=== PATIENT | male | born 1960 | race Caucasian/White ===

== ENCOUNTER 2017-11-25 10:19 | Observation (INO) | payer BC, SELFPAY | END 2017-11-26 11:05 | disposition home or self-care (01) | PROVIDERS: Admitting Provider Internal Medicine Adolescent Medicine; Family Provider Nurse Practitioner Family; PCP Nurse Practitioner Family; Visit Provider Internal Medicine Adolescent Medicine | DX: J18.9 Pneumonia, unspecified organism (principal); I10 Essential (primary) hypertension; E11.9 Type 2 diabetes mellitus without complications | CPT/HCPCS: 36415; 71020; 80048; 80053; 82962; 85025; 86738; 87040; 87486; 87581; 87633; 87798; 94640; 94760; G0378; J1956 ==

== ENCOUNTER 2019-09-18 05:08 | Observation (INO) ==
--- NOTE | 2019-09-18 05:12 | Emergency Department Note ---
ED Disposition Clinical Impression: Atypical chest pain, Polycythemia Coronary artery disease Qualifiers: Coronary Disease-Associated Artery/Lesion type: unspecified vessel or lesion type [place] vs. transplanted heart: [place] heart Associated angina: angina presence unspecified Qualified Code(s): I25.10 - Atherosclerotic heart disease of [place] coronary artery without angina pectoris Disposition: Admitted as Observation Condition on Discharge: Good - Critical Care Critical Care Time: No Attestation: On , the high probability of a clinically significant, sudden or life threatening deterioration of the following system(s) required my full and direct attention, intervention and personal management. The time I documented below is in addition to time spent performing reported procedures but includes the following listed in this critical care notation. Medical Decision Making - Olaf Inquiry Pt receiving controlled substance: No Vital Signs: 09/18/19 05:08 09/18/19 05:45 09/18/19 06:13 Temperature 98.5 F Temperature Source Oral Pulse Rate Pulse Rate [Right Brachial] 94 H 91 H 79 Respiratory Rate 19 16 16 Blood Pressure [Right Arm] 148/85 H 129/88 144/41 H Blood Pressure Mean [Right Arm] 106 101 75 Blood Pressure Source [Right Arm] Automatic Cuff Blood Pressure Position [Right Arm] Sitting 02 Sat by Pulse Oximetry 100 96 97 Oxygen Delivery Method Room Air Room Air Room Air 09/18/19 06:15 Temperature Temperature Source Pulse Rate 79 Pulse Rate [Right Brachial] Respiratory Rate Blood Pressure [Right Arm] Blood Pressure Mean [Right Arm] Blood Pressure Source [Right Arm] Blood Pressure Position [Right Arm] 02 Sat by Pulse Oximetry Oxygen Delivery Method - Lab Data Lab Results 09/18/19 05:10: WBC 9.8, RBC 6.20, Hgb 18.4 H*, Hct 58.8 H, MCV 94.9 H, MCH 29.5, MCHC 31.1 L, RDW 13.6, Plt Count 316, MPV 8.2, Neut % (Auto) 53.1, Lymph % (Auto) 37.9, [place] % (Auto) 5.9, Eos % (Auto) 2.2, Baso % (Auto) 0.9, Neut # (Auto) 5.2, Lymph # (Auto) 3.7, [place] # (Auto) 0.6, Eos # (Auto) 0.2, Baso # (Auto) 0.1 09/18/19 05:10: Sodium 138, Potassium 3.8, Chloride 99, Carbon Dioxide 29, Anion Gap 13.8, BUN 14, Creatinine 1.09, Estimated Creat Clear 97, Estimated GFR 69, Est GFR ( Amer) 83, Glucose 355 H, Calcium 9.9, Troponin I < 0.02 Result diagrams: 09/18/19 05:10 09/18/19 05:10 Orders (Tests/Meds): ED MEDICATIONS Generic Name Dose Route Start Last Admin Trade Name Freq PRN Reason Stop Dose Admin Insulin Human Lispro 0 unit 09/18/19 11:00 Humalog 100 Units/Ml 3ml Vial (Ssi) SQ 10/18/19 10:59 ACHS RICKY Protocol Discontinued Medications Generic Name Dose Route Start Last Admin Trade Name Freq PRN Reason Stop Dose Admin Aspirin 324 mg 09/18/19 06:35 09/18/19 06:05 Aspirin 81mg Chewable Tablet PO 09/18/19 06:36 324 mg ONCE ONE Administration - Radiology Data #1 Image(s): Chest Image Reviewed: Yes I reviewed the patient's radiology image Preliminary Findings: Normal/NAD - ECG Data Tracing #1 EKG interpreted by David Thomas MD: Rhythm: sinus Rate: 93 [place]: normal Ectopy: Premature atrial contraction Conduction: normal ST Segment Changes: none T Wave Changes: none Q Waves: none No evidence of acute ischemia or injury Baseline artifact present, but I consider the EKG adequate for accurate interpretation. - Physician Consults Physician Consulted: Peng Time: 06:23 Reason -: Admission Comment/Response: Agrees to admit the patient to the hospital. We discussed the patient's clinical information, including history, exam, laboratory and radiology results and ED course. Per hospital procedure, I will write temporary bridge inpatient orders on the patient. Specific orders requested by the admitting physician: Admit to observation with cardiology consult Medical Decision Narrative: Patient was seen here October 2016 for chest pain and admitted. He had a cardiac cath which showed an occluded right coronary artery with collaterals. Medical management. Normal troponins on that visit. General Adult HPI - General Chief complaint: Chest Pain Stated complaint: chest Time Seen by Provider: 09/18/19 05:23 - History of Present Illness HPI narrative: Complains of chest pain. Says that last Monday and Monday about 10 days ago he experienced several very sharp brief stabbing type chest pains in his left axillary area. He says that on Monday 1 week ago he started developing some soreness in his left anterior chest. It has been constant since then. It worsens when he grabs his pillow at night. He says sometimes he gets a little short of breath at night. No nausea or diaphoresis. No radiation of pain. States that he has had a previous LA, current pain reminds him of that pain. He has had a cardiac cath. He says that he had a blocked right sided artery with collaterals. He says that they told him he had had a previous heart attack based on his work-up, although he had no knowledge of a heart attack prior to that. He does not know that he got any stents. He says that he had a work-up here by Dr. Duarte. He has hypertension, diabetes, hyperlipidemia and a strong family history of heart disease. Father had a heart attack and brother had a heart attack at the age of 51. He is not a smoker. - Related Data Home Medications Medication Instructions Recorded Confirmed Aspirin [Aspirin 81mg chewable 81 mg PO DAILY 09/18/19 09/18/19 tab] Atorvastatin Calcium [Atorvastatin 80 mg PO HS 09/18/19 09/18/19 80mg Tab] Dapagliflozin Propanediol [Farxiga] 10 mg PO DAILY 09/18/19 09/18/19 Glimepiride 4 mg PO DAILY 09/18/19 09/18/19 Irbesartan [Irbesartan 75mg Tablet] 75 mg PO DAILY 09/18/19 09/18/19 Metformin HCl [Metformin 1000mg 1,000 mg PO DAILY 09/18/19 09/18/19 Tablets] Metoprolol Tartrate [Lopressor 25 mg PO BID 09/18/19 09/18/19 25mg tablet] Allergies Allergy/AdvReac Type Severity Reaction Status Date / Time No Known Allergies Allergy Unverified 11/14/17 15:15 [facility] History - Hepatitis A Screen Attestation statement:: This patient has been screened for Hepatitis A risk factors. I have reviewed the patient's past medical history: Yes ROS Obtained: Yes Systems reviewed as appropriate & no additional complaints - Constitutional Constitutional: Denies fever(s) - Cardiovascular Cardiovascular: Reports chest pain, Denies diaphoresis - Respiratory Respiratory: No cough, Yes dyspnea - Gastrointestinal Gastrointestingal: Denies: abdominal pain, nausea, vomiting Physical Exam - General General appearance: alert, in no apparent distress - Head Head exam: atraumatic, normocephalic - Eye Eye exam: Present: normal appearance, EOMI - ENT ENT exam: Present: normal exam, mucous membranes moist - Neck Neck exam: Present: normal inspection, trachea midline - Chest Chest inspection: Present: normal inspection, symmetric chest wall rise, tenderness (Minimal left anterior chest). Absent: rash - Respiratory Respiratory exam: Present: normal lung sounds bilaterally. Absent: respiratory distress - Cardiovascular Cardiovascular exam: Present: regular rate, normal rhythm - Abdominal Exam Abdominal exam: Present: soft, normal bowel sounds. Absent: distention, tenderness - Extremities Exam Extremities exam: Present: normal inspection, full ROM. Absent: tenderness, calf tenderness - Neurological Exam Neurological exam: Present: alert, oriented X3 - Psychiatric Psychiatric exam: Present: normal affect, normal mood - Skin Skin exam: Present: warm, dry
[2019-09-18 05:55] LABS: Basophils # 0.1 K/mm3 (0-0.2); Basophils % 0.9 % (0.1-2.0); Eosinophils # 0.2 K/mm3 (0.0-0.4); Eosinophils % 2.2 % (0.1-12.0); Hematocrit 58.8 % (42.0-52.0); Lymphocytes # 3.7 K/mm3 (0.7-4.5); Lymphocytes % 37.9 % (10-50); Mean Corpuscular HGB Conc 31.1 g/dL (31.8-35.4); Mean Corpuscular Volume 94.9 fl (80-94); Mean Platelet Volume 8.2 fl (7.4-10.4); Monocytes # 0.6 K/mm3 (0.1-1.0); Monocytes % 5.9 % (1.7-9.3); Neutrophils # 5.2 K/mm3 (1.8-7.8); Neutrophils % 53.1 % (37.0-80.0); Platelet Count 316 K/mm3 (142-424); Red Cell Distribution Width 13.6 % (11.5-17.5); White Blood Count 9.8 K/mm3 (4.8-10.8)
[2019-09-18 06:03] LABS: Hemoglobin 18.4 g/dL (14.1-18.0)
[2019-09-18 06:05] LABS: Anion Gap 13.8 mEq/L (5-15); Blood Urea Nitrogen 14 mg/dL (7-18); Calcium 9.9 mg/dL (8.5-10.1); Carbon Dioxide 29 mmol/L (21.0-32.0); Chloride 99 mmol/L (98-107); Glucose 355 mg/dL (74-106); Sodium 138 mmol/L (136-145)
--- NOTE | 2019-09-18 07:11 | Pharmacy Consult Notes ---
[facility] Pharmacy VTE Monitoring - Patient Demographics Admission date: 09/17/19 Report Date: 09/18/19 Time: 07:11 Allergies/Adverse Reactions: Patient Allergies No Known Allergies Allergy (Unverified 11/14/17 15:15) Height: 1.68 m Weight: 95.254 kg Patient Problems: Current Active Problems Atypical chest pain (Acute) Coronary artery disease (Acute) Polycythemia (Acute) - VTE Risk Labs: VTE Related Lab Results Hgb 18.4 g/dL (14.1-18.0) H* 09/18/19 05:10 Hct 58.8 % (42.0-52.0) H 09/18/19 05:10 Plt Count 316 K/mm3 (142-424) 09/18/19 05:10 BUN 14 mg/dL (7-18) 09/18/19 05:10 Creatinine 1.09 mg/dL (0.70-1.30) 09/18/19 05:10 Estimated Creat Clear 97 mL/min (50-200) 09/18/19 05:10 Clinical Trial Participant: No - Prophylaxis VTE Prophylaxis Ordered?: Yes Types of VTE Prophylaxis: TEDS Knee High
--- NOTE | 2019-09-18 09:17 | Consult Report ---
History of Present Illness Consult date: 09/18/19 Requesting physician: David Thomas Consult reason: chest pain Chief complaint: Chest pain Additional Medical History:: 1. Coronary artery disease with occluded right coronary artery 2. Myocardial infarction 3. Hypertension 4. Hyperlipidemia 5. Diabetes mellitus [facility] Oct 2016: 1. The left main artery mild plaque disease less than 10% stenosis 2. The left anterior descending artery mild plaque disease less than 20% 3. Left circumflex mild plaque disease less than 20% 4. Ramus intermediate proximal 30-40%, diffusely diseased 5. Right coronary artery 100% proximally occluded with well-developed left to right collaterals 6. Left ventricular end-diastolic pressure 10 mmHg 7. No significant angiographic mitral regurgitation 8. No gradient across the aortic valve 9. LVEF 50% with mild inferobasal hypokinesis IMPRESSION: 1. Coronary artery disease as described above with preserved left ventricular systolic function PLAN: 1. Medical management with aggressiveness modification 2. Metoprolol 25 mg by mouth twice daily 3. [id number] mg by mouth daily 4. Ranexa 500 mg twice daily 5. aggressive lipid lowering therapy History of present illness: This is a 59-year-old gentleman who came into the emergency department with complaints of chest pain. He states that his pain started about 10 days ago and initially started in his left axillary region. He states that this was a sharp pain felt as if it was a stabbing sensation. The patient states that the following Monday the pain started to radiate into his chest. He describes this as a left-sided aching sensation. He states that this is fairly constant when it occurs. He states that it does improve but then comes right back. He states that this is worse when he is grabbing something or picking something up. He does notice this at rest and at times with exertion as well. The patient states that over the last 10 days this pain has progressively worsened. He states that it did get worse overnight last night and that is why he decided to come into the emergency department. He does have some intermittent shortness of breath as well. He denies any nausea, vomiting or diaphoresis. The patient states that the pain he is experiencing now is worse than the pain that he had previously when he was told that he had an GA in the past. The patient is describing accelerated angina. The patient does have coronary artery disease with an occluded right coronary artery that has left to right collaterals. He also had persistent mild to moderate diffuse coronary artery disease as well. This was in 2016. The patient has failed to follow-up regularly in cardiology clinic. He does have known coronary artery disease, hypertension, hyperlipidemia and diabetes. Both his father and brother had a heart attack. He denies any tobacco use. He denies any fever, chills, nausea, vomiting, diarrhea, PND or orthopnea. [facility] History I have reviewed the patient's past medical history: Yes Medical History: Reports:: Atherosclerotic Heart Disease, Coronary Artery Disease, Diabetes Mellitus Type 2, Hyperlipidemia, Hypertension Denies:: Cancer, Diabetes Mellitus Type 1, Internal Pacemaker, MRSA *Have you ever received a pneumonia vaccine?: No *Have you received a flu vaccine this season?: No (Refuses) Laterality Cases: Bilateral: Tonsillectomy Other Surgeries: Yes: Cardiac Catheterization. No: Pacemaker Amputation: No Fractures: No - *Social History Educational Level: Completed High School Smoking Status: Never smoker Alcohol Intake: former *Occupational Status:: employed Housing: house *Travel in the last 8 weeks: None Family Hx:: Diabetes, Heart Attack, Hypertension Meds Home Medications Medication Instructions Recorded Confirmed Type Aspirin [Aspirin 81mg EC Tab] 81 mg PO DAILY 09/18/19 09/18/19 History Atorvastatin Calcium [Atorvastatin 80 mg PO HS 09/18/19 09/18/19 History 80mg Tab] Dapagliflozin Propanediol [Farxiga] 10 mg PO DAILY 09/18/19 09/18/19 History Glimepiride 4 mg PO DAILY 09/18/19 09/18/19 History Losartan Potassium 50 mg PO DAILY 09/18/19 09/18/19 History Metformin HCl [Metformin 1000mg 1,000 mg PO BID 09/18/19 09/18/19 History Tablets] Metoprolol Tartrate [Lopressor 25 mg PO BID 09/18/19 09/18/19 History 25mg tablet] Niacin [Niacin ER] 500 mg PO HS 09/18/19 09/18/19 History Allergies Allergy/AdvReac Type Severity Reaction Status Date / Time No Known Allergies Allergy Unverified 11/14/17 15:15 Review of Systems - Review of Systems Review of systems:: pertinent systems reviewed and negative unless documented below - *Cardiovascular Reports chest pain, Reports chest pain at rest, Reports chest pain with activity, Reports shortness of breath - *Respiratory Reports shortness of breath Exam Vital signs and Labs for Last 24 Hours: Temp Pulse Resp BP Pulse Ox 98.6 F 83 18 131/80 97 09/18/19 08:08 09/18/19 08:08 09/18/19 08:08 09/18/19 08:08 09/18/19 08:08 Laboratory Results - last 24 hr 09/18/19 05:10: WBC 9.8, RBC 6.20, Hgb 18.4 H*, Hct 58.8 H, MCV 94.9 H, MCH 29.5, MCHC 31.1 L, RDW 13.6, Plt Count 316, MPV 8.2, Neut % (Auto) 53.1, Lymph % (Auto) 37.9, [place] % (Auto) 5.9, Eos % (Auto) 2.2, Baso % (Auto) 0.9, Neut # (Auto) 5.2, Lymph # (Auto) 3.7, [place] # (Auto) 0.6, Eos # (Auto) 0.2, Baso # (Auto) 0.1 09/18/19 05:10: Sodium 138, Potassium 3.8, Chloride 99, Carbon Dioxide 29, Anion Gap 13.8, BUN 14, Creatinine 1.09, Estimated Creat Clear 97, Estimated GFR 69, Est GFR ( Amer) 83, Glucose 355 H, Calcium 9.9, Troponin I < 0.02 09/18/19 05:10: Troponin I < 0.02 I & O for Last 24 hours: Intake & Output 09/15/19 09/16/19 09/17/19 09/18/19 23:59 23:59 23:59 23:59 Weight 183 lb 3 oz Narrative: His EKG is sinus rhythm with a PAC and a rate of 93. His telemetry strip is sinus rhythm with a rate of 92. - Constitutional no acute distress, average body habitus - *Routine HEENT Exam Head: Present: normocephalic, atraumatic Eye: Present: EOMI, PERRL ENT: Present: mucous membranes moist - *Routine Neck Exam Present: supple, full ROM, normal carotid upstroke. Absent: JVD, carotid bruit, lymphadenopathy - *Routine Respiratory Exam Present: CTA bilaterally - *Routine Cardiovascular Exam Present: RRR, Normal S1, Normal S2. Absent: murmur, gallop - *Routine Abdominal Exam Present: soft, normoactive bowel sounds. Absent: tenderness, distended - *Routine Extremities Exam Present: full ROM, pulses intact, normal capillary refill. Absent: cyanosis, clubbing, edema - *Routine Skin Exam Present: intact, warm. Absent: erythema, rash - *Routine Neurological Exam Present: alert, oriented X3, CN II-XII intact. Absent: sensory deficit, motor deficit - Routine Psychiatric Exam Present: normal affect, normal thought process - Detailed Eye Exam Eyelids: Left normal inspection Assessment and Plan (1) Angina pectoris Current visit: Yes Status: Acute Category: Medical Code(s): I20.9 - Angina pectoris, unspecified (2) Shortness of breath Current visit: Yes Status: Acute Category: Medical Code(s): R06.02 - Shortness of breath (3) Coronary artery disease Current visit: Yes Status: Chronic Qualifiers: Coronary Disease-Associated Artery/Lesion type: unspecified vessel or lesion type [place] vs. transplanted heart: [place] heart Associated angina: angina presence unspecified Qualified Code(s): I25.10 - Atherosclerotic heart disease of [place] coronary artery without angina pectoris Category: Medical Code(s): I25.10 - Atherosclerotic heart disease of [place] coronary artery without angina pectoris (4) Hypertension Current visit: Yes Status: Chronic Category: Medical Code(s): I10 - Essential (primary) hypertension (5) Hyperlipidemia Current visit: Yes Status: Chronic Category: Medical Code(s): E78.5 - Hyperlipidemia, unspecified (6) Diabetes mellitus Current visit: Yes Status: Chronic Category: Medical Code(s): E11.9 - Type 2 diabetes mellitus without complications (7) Family history of ischemic heart disease Current visit: Yes Status: Chronic Category: Medical Code(s): Z82.49 - Family history of ischemic heart disease and other diseases of the circulatory system (8) Polycythemia Current visit: Yes Status: Acute Category: Medical Code(s): D75.1 - Secondary polycythemia - Assessment and plan all Dx Assessment and Plan for all problems:: Plan: 1. The patient was admitted to the hospital with complaints of chest pain. The patient has been having class III-IV angina for the last 10 days. He states that his symptoms are progressively worsening and did get worse overnight and that is why he came into the emergency department. The patient is having accelerated angina he has known coronary artery disease with an occluded right coronary artery with [id number] collaterals. He also had diffuse persistent mild to moderate disease in 2016 which was the last time the patient had an ischemic evaluation. Stress testing would not be helpful in this patient brenda use of the occluded right coronary artery, and ischemia could be missed. Due to his class III-IV angina and accelerated angina, recommend proceeding with left cardiac catheterization to evaluate his coronary artery disease. 2. The patient has been educated on the risks and benefits of proceeding with left cardiac catheterization with right radial access. The patient has verbalized understanding and is agreeable in proceeding with the procedure. 3. The patient will be n.p.o. in preparation for left cardiac catheterization. 4. The patient will get IV fluids and premedications prior to left cardiac catheterization. 5. We will obtain an echocardiogram to evaluate his LV function due to his shortness of breath and accelerated angina. 6. The patient is heart rate is higher than we would like. We will increase his metoprolol to 50 mg p.o. twice daily for better heart rate control. 7. His blood pressure is acceptable at this time. 8. His LDL goal is less than 55. The patient is on a high intensity statin. Will obtain a lipid panel at this time. 9. The patient is diabetic placing him at high risk for coronary artery disease progression. The patient reports that he drinks 15-18 Mountain Dew's a day. I had a long discussion with the patient about the sugar content and soda and how he needs to avoid drinking a significant amount of soda in a day or his diabetes could significantly worsen which can in turn worsen his coronary artery disease. 10. The patient does have a family history of GA with his father and brother both having heart attacks. His brother was 51 at the time of his heart attack. 11. Further recommendations will be made pending the patient's response to treatment and the results of his left cardiac catheterization and echocardiogram later today. Thank you for the opportunity to help participate in the care of this patient.
[2019-09-18 10:42] LABS: Chol/HDL Ratio 2.8 (1-3.5)
--- NOTE | 2019-09-18 11:15 | Electrocardiograph Report ---
APPROVED REPORT Exam: Resting ECG HR:93 bpm ECG Measurements Heart Rate 93 AXES [place] 146 P 53 QRSd 74 QRS 9 QT 372 T54 QTc 462 <Conclusion> Sinus rhythm with premature supraventricular complexes Otherwise normal ECG Electronically signed by : Abel Khoury, 09/18/2019 11:15:18
--- NOTE | 2019-09-18 13:24 | History & Physical Report ---
*Admission Date: 09/17/19 *Chief complaint: Chest pain/dyspnea *History of present illness: This is a 59-year-old gentleman who came into the emergency department with complaints of chest pain. He states that his pain started about 10 days ago and initially started in his left axillary region. He states that this was a sharp pain felt as if it was a stabbing sensation. The patient states that the following Monday the pain started to radiate into his chest. He describes this as a left-sided aching sensation. He states that this is fairly constant when it occurs. He states that it does improve but then comes right back. He states that this is worse when he is grabbing something or picking something up. He does notice this at rest and at times with exertion as well. The patient states that over the last 10 days this pain has progressively worsened. He states that it did get worse overnight last night and that is why he decided to come into the emergency department. He does have some intermittent shortness of breath as well. He denies any nausea, vomiting or diaphoresis. The patient states that the pain he is experiencing now is worse than the pain that he had previously when he was told that he had an MO in the past. The patient is describing accelerated angina. The patient does have coronary artery disease with an occluded right coronary artery that has left to right collaterals. He also had persistent mild to moderate diffuse coronary artery disease as well. This was in 2016. The patient has failed to follow-up regularly in cardiology clinic. He does have known coronary artery disease, hypertension, hyperlipidemia and diabetes. Both his father and brother had a heart attack. He denies any tobacco use. He denies any fever, chills, nausea, vomiting, diarrhea, PND or orthopnea. Above note per cardiology. Agree with above. Agree with admission to hospital. [facility] History I have reviewed the patient's past medical history: Yes Medical History: Reports:: Atherosclerotic Heart Disease, Coronary Artery Disease, Diabetes Mellitus Type 2, Hyperlipidemia, Hypertension Denies:: Cancer, Diabetes Mellitus Type 1, Internal Pacemaker, MRSA *Have you ever received a pneumonia vaccine?: No *Have you received a flu vaccine this season?: No (Refuses) Laterality Cases: Bilateral: Tonsillectomy Other Surgeries: Yes: Cardiac Catheterization. No: Pacemaker Amputation: No Fractures: No - *Social History Educational Level: Completed High School Smoking Status: Never smoker Alcohol Intake: former *Occupational Status:: employed Housing: house *Travel in the last 8 weeks: None Family Hx:: Diabetes, Heart Attack, Hypertension Review of Systems - Review of Systems Review of systems:: pertinent systems reviewed and negative unless documented below Meds Home Medications Medication Instructions Recorded Confirmed Type Aspirin [Aspirin 81mg EC Tab] 81 mg PO DAILY 09/18/19 09/18/19 History Atorvastatin Calcium [Atorvastatin 80 mg PO HS 09/18/19 09/18/19 History 80mg Tab] Dapagliflozin Propanediol [Farxiga] 10 mg PO DAILY 09/18/19 09/18/19 History Glimepiride 4 mg PO DAILY 09/18/19 09/18/19 History Irbesartan [Irbesartan 75mg Tablet] 75 mg PO DAILY 09/18/19 09/18/19 History Metformin HCl [Metformin 1000mg 1,000 mg PO BID 09/18/19 09/18/19 History Tablets] Metoprolol Tartrate [Lopressor 25 mg PO BID 09/18/19 09/18/19 History 25mg tablet] Niacin [Niacin ER] 500 mg PO HS 09/18/19 09/18/19 History Allergies Allergy/AdvReac Type Severity Reaction Status Date / Time No Known Allergies Allergy Unverified 11/14/17 15:15 Exam Vital signs and Labs for Last 24 Hours: Temp Pulse Resp BP Pulse Ox 98.6 F 83 18 131/80 97 09/18/19 08:08 09/18/19 08:08 09/18/19 08:08 09/18/19 08:08 09/18/19 08:08 Laboratory Results - last 24 hr 09/18/19 05:10: WBC 9.8, RBC 6.20, Hgb 18.4 H*, Hct 58.8 H, MCV 94.9 H, MCH 29.5, MCHC 31.1 L, RDW 13.6, Plt Count 316, MPV 8.2, Neut % (Auto) 53.1, Lymph % (Auto) 37.9, [place] % (Auto) 5.9, Eos % (Auto) 2.2, Baso % (Auto) 0.9, Neut # (Auto) 5.2, Lymph # (Auto) 3.7, [place] # (Auto) 0.6, Eos # (Auto) 0.2, Baso # (Auto) 0.1 09/18/19 05:10: Sodium 138, Potassium 3.8, Chloride 99, Carbon Dioxide 29, Anion Gap 13.8, BUN 14, Creatinine 1.09, Estimated Creat Clear 97, Estimated GFR 69, Est GFR ( Amer) 83, Glucose 355 H, Calcium 9.9, Troponin I < 0.02 09/18/19 05:10: Troponin I Cancelled 09/18/19 05:10: Triglycerides 270 H, Cholesterol 147, LDL Cholesterol 41, VLDL Cholesterol 54 H, HDL Cholesterol 52, Cholesterol/HDL Ratio 2.8 09/18/19 10:03: Troponin I < 0.02 I & O for Last 24 hours: Intake & Output 09/16/19 09/17/19 09/18/19 09/19/19 11:59 11:59 11:59 11:59 Weight 183 lb 2.984 oz Narrative: Constitutional no acute distress, average body habitus - *Routine HEENT Exam Head: Present: normocephalic, atraumatic Eye: Present: EOMI, PERRL ENT: Present: mucous membranes moist - *Routine Neck Exam Present: supple, full ROM, normal carotid upstroke. Absent: JVD, carotid bruit, lymphadenopathy - *Routine Respiratory Exam Present: CTA bilaterally - *Routine Cardiovascular Exam Present: RRR, Normal S1, Normal S2. Absent: murmur, gallop - *Routine Abdominal Exam Present: soft, normoactive bowel sounds. Absent: tenderness, distended - *Routine Extremities Exam Present: full ROM, pulses intact, normal capillary refill. Absent: cyanosis, clubbing, edema - *Routine Skin Exam Present: intact, warm. Absent: erythema, rash - *Routine Neurological Exam Present: alert, oriented X3, CN II-XII intact. Absent: sensory deficit, motor deficit - Routine Psychiatric Exam Present: normal affect, normal thought process Assessment and Plan (1) Angina pectoris Current visit: Yes Status: Acute Category: Medical Code(s): I20.9 - Angina pectoris, unspecified (2) Shortness of breath Current visit: Yes Status: Acute Category: Medical Code(s): R06.02 - Shortness of breath (3) Coronary artery disease Current visit: Yes Status: Chronic Qualifiers: Coronary Disease-Associated Artery/Lesion type: unspecified vessel or lesion type [place] vs. transplanted heart: [place] heart Associated angina: angina presence unspecified Qualified Code(s): I25.10 - Atherosclerotic heart disease of [place] coronary artery without angina pectoris Category: Medical Code(s): I25.10 - Atherosclerotic heart disease of [place] coronary artery without angina pectoris (4) Hypertension Current visit: Yes Status: Chronic Category: Medical Code(s): I10 - Essential (primary) hypertension (5) Hyperlipidemia Current visit: Yes Status: Chronic Category: Medical Code(s): E78.5 - Hyperlipidemia, unspecified (6) Diabetes mellitus Current visit: Yes Status: Chronic Category: Medical Code(s): E11.9 - Type 2 diabetes mellitus without complications (7) Family history of ischemic heart disease Current visit: Yes Status: Chronic Category: Medical Code(s): Z82.49 - Family history of ischemic heart disease and other diseases of the circulatory system (8) Polycythemia Current visit: Yes Status: Acute Category: Medical Code(s): D75.1 - Secondary polycythemia - Assessment and plan all Dx Assessment and Plan for all problems:: Agree with admission to hospital. Cardiology consultation and probable left heart catheterization. Fingerstick blood sugar with sliding scale insulin for better glycemic control.
--- NOTE | 2019-09-18 23:34 | Discharge Summary ---
General - General Admission date:: 09/18/19 Discharge date: 09/19/19 HPI HPI: This is a 59-year-old gentleman who came into the emergency department with complaints of chest pain. He states that his pain started about 10 days ago and initially started in his left axillary region. He states that this was a sharp pain felt as if it was a stabbing sensation. The patient states that the following Monday the pain started to radiate into his chest. He describes this as a left-sided aching sensation. He states that this is fairly constant when it occurs. He states that it does improve but then comes right back. He states that this is worse when he is grabbing something or picking something up. He does notice this at rest and at times with exertion as well. The patient states that over the last 10 days this pain has progressively worsened. He states that it did get worse overnight last night and that is why he decided to come into the emergency department. He does have some intermittent shortness of breath as well. He denies any nausea, vomiting or diaphoresis. The patient states that the pain he is experiencing now is worse than the pain that he had previously when he was told that he had an NH in the past. The patient is describing accelerated angina. The patient does have coronary artery disease with an occluded right coronary artery that has left to right collaterals. He also had persistent mild to moderate diffuse coronary artery disease as well. This was in 2016. The patient has failed to follow-up regularly in cardiology clinic. He does have known coronary artery disease, hypertension, hyperlipidemia and di abetes. Both his father and brother had a heart attack. He denies any tobacco use. He denies any fever, chills, nausea, vomiting, diarrhea, PND or orthopnea. Above note per cardiology. Agree with above. Agree with admission to hospital. Hospital Course Hospital Course: 59-year-old male admitted for chest pain. Was taken emergently to the [facility] where drug-eluting stents were placed. See cath report for full details. Had improvement in his pain. Was initiated on goal-directed therapy and dual antiplatelet therapy. Patient tolerated meds well and remained symptom-free throughout the duration of his admission. Tolerating p.o. intake with good ability to tolerate meds. Denied chest pain, shortness of breath, weakness, confusion, nausea, vomiting. Medically stable for discharge home with close follow-up with both cardiology and his PCP. Of note, patient noted to have poorly controlled diabetes. Have tried multiple different therapies in the outpatient setting including current oral regimen as well as trying to initiate insulin. Patient continues to have financial hurdles to his insulin therapy however stressed the significance of his uncontrolled diabetes and continued progression of coronary artery disease as well as neuropathy and other complications of diabetes. Patient states understanding. Will address diabetes in the outpatient setting. Objective Vital signs: Temp Pulse Resp BP Pulse Ox 98.9 F 65 14 95/61 L 97 09/18/19 20:07 09/18/19 22:00 09/18/19 22:00 09/18/19 22:00 09/18/19 22:00 Narrative: Constitutional no acute distress, average body habitus - *Routine HEENT Exam Head: Present: normocephalic, atraumatic Eye: Present: EOMI, PERRL ENT: Present: mucous membranes moist - *Routine Neck Exam Present: supple, full ROM, normal carotid upstroke. Absent: JVD, carotid bruit, lymphadenopathy - *Routine Respiratory Exam Present: CTA bilaterally - *Routine Cardiovascular Exam Present: RRR, Normal S1, Normal S2. Absent: murmur, gallop - *Routine Abdominal Exam Present: soft, normoactive bowel sounds. Absent: tenderness, distended - *Routine Extremities Exam Present: full ROM, pulses intact, normal capillary refill. Absent: cyanosis, clubbing, edema - *Routine Skin Exam Present: intact, warm. Absent: erythema, rash - *Routine Neurological Exam Present: alert, oriented X3, CN II-XII intact. Absent: sensory deficit, motor deficit - Routine Psychiatric Exam Present: normal affect, normal thought process Results Labs on day of discharge: Labs from last 24 hours 09/18/19 09/18/19 09/18/19 20:14 16:11 12:10 WBC RBC Hgb Hct MCV MCH MCHC RDW Plt Count MPV Neut % (Auto) Lymph % (Auto) [place] % (Auto) Eos % (Auto) Baso % (Auto) Neut # (Auto) Lymph # (Auto) [place] # (Auto) Eos # (Auto) Baso # (Auto) Activated Clotting Time > 400 H* Sodium Potassium Chloride Carbon Dioxide Anion Gap BUN Creatinine Estimated Creat Clear Estimated GFR Est GFR ( Amer) Glucose POC Glucose 243 H 308 H* Calcium Troponin I Triglycerides Cholesterol LDL Cholesterol VLDL Cholesterol HDL Cholesterol Cholesterol/HDL Ratio 09/18/19 09/18/19 09/18/19 10:03 05:10 05:10 WBC RBC Hgb Hct MCV MCH MCHC RDW Plt Count MPV Neut % (Auto) Lymph % (Auto) [place] % (Auto) Eos % (Auto) Baso % (Auto) Neut # (Auto) Lymph # (Auto) [place] # (Auto) Eos # (Auto) Baso # (Auto) Activated Clotting Time Sodium Potassium Chloride Carbon Dioxide Anion Gap BUN Creatinine Estimated Creat Clear Estimated GFR Est GFR ( Amer) Glucose POC Glucose Calcium Troponin I < 0.02 Cancelled Triglycerides 270 H Cholesterol 147 LDL Cholesterol 41 VLDL Cholesterol 54 H HDL Cholesterol 52 Cholesterol/HDL Ratio 2.8 09/18/19 09/18/19 05:10 05:10 WBC 9.8 RBC 6.20 Hgb 18.4 H* Hct 58.8 H MCV 94.9 H MCH 29.5 MCHC 31.1 L RDW 13.6 Plt Count 316 MPV 8.2 Neut % (Auto) 53.1 Lymph % (Auto) 37.9 [place] % (Auto) 5.9 Eos % (Auto) 2.2 Baso % (Auto) 0.9 Neut # (Auto) 5.2 Lymph # (Auto) 3.7 [place] # (Auto) 0.6 Eos # (Auto) 0.2 Baso # (Auto) 0.1 Activated Clotting Time Sodium 138 Potassium 3.8 Chloride 99 Carbon Dioxide 29 Anion Gap 13.8 BUN 14 Creatinine 1.09 Estimated Creat Clear 97 Estimated GFR 69 Est GFR ( Amer) 83 Glucose 355 H POC Glucose Calcium 9.9 Troponin I < 0.02 Triglycerides Cholesterol LDL Cholesterol VLDL Cholesterol HDL Cholesterol Cholesterol/HDL Ratio DS: Diagnosis - Discharge Diagnosis (1) Angina pectoris Status: Resolved (2) Shortness of breath Status: Resolved (3) Coronary artery disease Status: Chronic (4) Hypertension Status: Chronic (5) Hyperlipidemia Status: Chronic (6) Diabetes mellitus Status: Chronic (7) Family history of ischemic heart disease Status: Chronic (8) Polycythemia Status: Acute Discharge Plan - Patient Discharge Instructions Patient Instructions: Cardiac Catheterization, Heart-Healthy Diet, DI for Angina, DI for Cardiac Catheterization, DI for Surgical Site Infection - Follow up Plan Follow up with: Tim Ferrer MD [Staff Physician] - Brenden Duarte MD [Staff Physician] - 09/26/19 9:50 am Disposition: Home, Self-[facility]ci Medications: Home Medications Medication Instructions Recorded Confirmed Type Atorvastatin Calcium [Atorvastatin 80 mg PO HS 09/18/19 09/18/19 History 80mg Tab] Dapagliflozin Propanediol [Farxiga] 10 mg PO DAILY 09/18/19 09/18/19 History Glimepiride 4 mg PO DAILY 09/18/19 09/18/19 History Irbesartan [Irbesartan 75mg Tablet] 75 mg PO DAILY 09/18/19 09/18/19 History Metformin HCl [Metformin 1000mg 1,000 mg PO BID 09/18/19 09/18/19 History Tablets] Niacin [Niacin ER] 500 mg PO HS 09/18/19 09/18/19 History Aspirin [Aspirin 81mg chewable 81 mg PO DAILY 30 Days #30 tab.chew 09/19/19 Rx tab] Isosorbide Mononitrate [Imdur 30mg 30 mg PO DAILY 30 Days #30 tab 09/19/19 Rx ER tablet] Metoprolol Tartrate [Lopressor 50 mg PO BID 30 Days #60 tab 09/19/19 Rx 50mg tablet] Ticagrelor [Brilinta 90mg Tablet] 90 mg PO BID 30 Days #60 tab 09/19/19 Rx Prescriptions/Medication Reconciliation: New Aspirin [Aspirin 81mg chewable tab] 81 mg PO DAILY 30 Days #30 tab.chew Ticagrelor [Brilinta 90mg Tablet] 90 mg PO BID 30 Days #60 tab Metoprolol Tartrate [Lopressor 50mg tablet] 50 mg PO BID 30 Days #60 tab Isosorbide Mononitrate [Imdur 30mg ER tablet] 30 mg PO DAILY 30 Days #30 tab Continued Atorvastatin Calcium [Atorvastatin 80mg Tab] 80 mg PO HS Metformin HCl [Metformin 1000mg Tablets] 1,000 mg PO BID Glimepiride 4 mg PO DAILY Dapagliflozin Propanediol [Farxiga] 10 mg PO DAILY Irbesartan [Irbesartan 75mg Tablet] 75 mg PO DAILY Niacin [Niacin ER] 500 mg PO HS Discontinued Metoprolol Tartrate [Lopressor 25mg tablet] 25 mg PO BID Aspirin [Aspirin 81mg EC Tab] 81 mg PO DAILY - Problem Reconciliation Problems Reviewed?: Yes
[2019-09-19 06:00] LABS: Basophils # 0.1 K/mm3 (0-0.2); Basophils % 0.5 % (0.1-2.0); Eosinophils # 0.2 K/mm3 (0.0-0.4); Eosinophils % 2.1 % (0.1-12.0); Hematocrit 51.1 % (42.0-52.0); Hemoglobin 16.1 g/dL (14.1-18.0); Lymphocytes # 2.9 K/mm3 (0.7-4.5); Lymphocytes % 24.7 % (10-50); Mean Corpuscular HGB Conc 31.5 g/dL (31.8-35.4); Mean Corpuscular Volume 92.7 fl (80-94); Mean Platelet Volume 8.5 fl (7.4-10.4); Monocytes # 0.8 K/mm3 (0.1-1.0); Monocytes % 7.3 % (1.7-9.3); Neutrophils # 7.6 K/mm3 (1.8-7.8); Neutrophils % 65.5 % (37.0-80.0); Platelet Count 253 K/mm3 (142-424); Red Blood Count 5.51 M/mm3 (4.60-6.20); Red Cell Distribution Width 13.6 % (11.5-17.5); White Blood Count 11.6 K/mm3 (4.8-10.8)
[2019-09-19 06:40] LABS: Anion Gap 13.3 mEq/L (5-15)
[2019-09-19 07:14] LABS: Calcium 8.6 mg/dL (8.5-10.1)
--- NOTE | 2019-09-19 08:11 | Progress Note ---
Subjective Date: 09/19/19 Time: 07:54 Principal diagnosis: UAP Interval history: 59-year-old white male in bed in no acute distress. Denies any further chest pain. Ready to go home. Patient does admit to drinking at least 12 regular Mountain Dew's per day. Last hemoglobin A1c was greater than 11. Had a discussion regarding his progression of coronary artery disease in the last 3 years relating to his poor management of his diabetes. Exam Vital signs and Labs for Last 24 Hours: Temp Pulse Resp BP Pulse Ox 98.8 F 78 16 126/77 96 09/19/19 04:00 09/19/19 06:00 09/19/19 06:00 09/19/19 06:00 09/19/19 06:00 Laboratory Results - last 24 hr 09/18/19 05:10: Troponin I Cancelled 09/18/19 05:10: Triglycerides 270 H, Cholesterol 147, LDL Cholesterol 41, VLDL Cholesterol 54 H, HDL Cholesterol 52, Cholesterol/HDL Ratio 2.8 09/18/19 10:03: Troponin I < 0.02 09/18/19 12:10: Activated Clotting Time > 400 H* 09/18/19 16:11: POC Glucose 308 H* 09/18/19 20:14: POC Glucose 243 H 09/19/19 05:28: POC Glucose 154 H 09/19/19 05:34: WBC 11.6 H, RBC 5.51, Hgb 16.1, Hct 51.1, MCV 92.7, MCH 29.2, MCHC 31.5 L, RDW 13.6, Plt Count 253, MPV 8.5, Neut % (Auto) 65.5, Lymph % (Auto) 24.7, [place] % (Auto) 7.3, Eos % (Auto) 2.1, Baso % (Auto) 0.5, Neut # (Auto) 7.6, Lymph # (Auto) 2.9, [place] # (Auto) 0.8, Eos # (Auto) 0.2, Baso # (Auto) 0.1 09/19/19 05:34: Sodium 141, Potassium 4.3, Chloride 106, Carbon Dioxide 26, Anion Gap 13.3, BUN 11, Creatinine 0.94, Estimated Creat Clear 100, Estimated GFR 82, Est GFR ( Amer) 99, Glucose 178 H, Calcium 8.6 D I & O for Last 24 hours: Intake & Output 09/16/19 09/17/19 09/18/19 09/19/19 11:59 11:59 11:59 11:59 Intake Total 2597 / 2597 Balance 2597 / 2597 Weight 183 lb 2.984 oz 186 lb 5.002 oz - *Routine Respiratory Exam Present: CTA bilaterally. Absent: accessory muscle use, rales, rhonchi, wheezes - *Routine Cardiovascular Exam Present: RRR. Absent: murmur, gallop, rubs - *Routine Extremities Exam Absent: edema, calf tenderness - *Routine Neurological Exam Present: alert, oriented X3, moving all extremities Progress Note: A&P (1) Angina pectoris Status: Acute Current Visit: Yes (2) Shortness of breath Status: Acute Current Visit: Yes (3) Coronary artery disease Status: Chronic Current Visit: Yes (4) Hypertension Status: Chronic Current Visit: Yes (5) Hyperlipidemia Status: Chronic Current Visit: Yes (6) Diabetes mellitus Status: Chronic Current Visit: Yes (7) Family history of ischemic heart disease Status: Chronic Current Visit: Yes (8) Polycythemia Status: Acute Current Visit: Yes Assessment and Plan for All Diagnoses:: 1. Okay for discharge home from cardiology standpoint. 2. Continue aspirin and Brilinta, statin, beta-monae, Imdur and ARB. 3. Follow-up in our office in 1 week. 4. Limited use of right hand and arm (maximum lifting weight of 30 pounds) for 1 week.
--- NOTE | 2019-09-23 13:48 | Cardiology Report ---
[facility] RADIOLOGICAL CONSULTATION Patient Name : MAINE DIEGO X-RAY # : [id number] Physician: ALEX PAIGE AGE: 59Y : 1960 00:00:00 ( M ) Exam : CA ECHO DOPPLER COMPLETE ACC # : [id number] Study Date : 09/18/2019 09:23:53 Patient Class : I FINAL REPORT CLINICAL DATA: FINDINGS: TRANSCRIBED REPORT EXAM: Comprehensive 2D, Doppler, and color-flow Echocardiogram Ht: 5 ft 5 in Wt: 183lbs BSA: 1.90 BP: 144/41 mmHg Indications: Chest Pain, Shortness of Breath, Diabetes, CAD, Hyperlipidemia, Hypertension/HDD 2D Dimensions LVOT 1.95 cm (M/F) 1.5-2.5 M-Mode Dimensions RVDd 2.57 cm (0.9-2.6)LVDd 4.68 cm (3.5-5.7) LVDs 4.11 cm (3.5-5.7)IVSd 0.97 cm (0.6-1.1) PWd 1.00 cm (0.6-1.1)EF (Teich) 26.30% FS 12.20% EDV (Teich) 101.30 mL ESV (Teich) 74.70 mL LV Diastology E/A Ratio 0.70 Mitral Valve MV A Velocity 52.00 (40-130 cm/s) Electronically signed by : IMPRESSION: Dictated by at Transcribed by at
== END 2019-09-19 13:39 | disposition home or self-care (01) ==
LOC: ER 05:08 → 2ND 05:08
PROVIDERS: ADMIT Internal Medicine Adolescent Medicine; ATTEND Internal Medicine Adolescent Medicine
CPT/HCPCS: 36415; 71020; 71046; 80048; 80061; 82962; 84484; 85025; 85347; 92928; 93005; 93306; 93458; 99152; 99153; 99284; C1725; C1769; C1876; C9600; G0378; J1644; Q9967

== ENCOUNTER → 2019-11-14 07:42 | Outpatient (CLI) | payer BC, SELFPAY ==
--- NOTE | 2019-11-14 07:42 | XR_ITS ---
PROCEDURE: XR FOOT WT BEARING LT 3V CLINICAL INDICATION: Pain Left foot pain, COMPARISON: No exams were available for comparison FINDINGS: No fracture or dislocation. No lytic or blastic change. There is normal mineralization. Mild osteoarthritic changes are present at the 1st metatarsophalangeal joint. There is some periarticular calcification laterally at the 2nd metatarsophalangeal joint. A bone island is present in the talus. Small calcaneal spur is noted IMPRESSION: Mild degenerative changes, no acute finding Dictated by: Artem Kaminski MD 11/14/2019 13:59 Electronically signed by Artem Kaminski MD in [place] 11/14/2019 13:59
--- NOTE | 2019-11-14 07:42 | XR_ITS ---
PROCEDURE: XR FOOT WT BEARING RT 3V CLINICAL INDICATION: pain COMPARISON: No exams were available for comparison FINDINGS: Minimal hallux valgus with mild osteoarthritic change 1st MTP joint and mild bunion formation. No fracture or dislocation. No lytic or blastic change. Small calcaneal spur Other findings:None. IMPRESSION: Mild hallux valgus with osteoarthritic change and bunion formation at 1st metatarsophalangeal joint Dictated by: Artem Kaminski MD 11/14/2019 14:00 Electronically signed by Artem Kaminski MD in [place] 11/14/2019 14:00
--- NOTE | 2019-11-14 07:42 | US_ITS ---
PROCEDURE: US EXTREMITY LT LIMITED CLINICAL INDICATION: Soft tissue mass Soft tissue masses of the foot palpable COMPARISON: XR FOOT WT BEARING LT 3V from 11/14/2019 FINDINGS: 4 palpable abnormalities are present involving the plantar surface of the foot measuring 2.3 x 1.1, 2.6 x 1.1 cm, 2.2 x 0.7 cm, and 1.7 x 0.5 cm. 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 These do not appear to represent simple cysts. These are in the subcutaneous tissue. IMPRESSION: Palpable abnormalities of the plantar surface of the left foot noted as described above heterogeneous in nature possibly due to plantar fibromatosis Dictated by: Artem Kaminski MD 11/14/2019 13:56 Electronically signed by Artem Kaminski MD in [place] 11/14/2019 13:56
== END ==
PROVIDERS: PCP Nurse Practitioner Family; Visit Provider Podiatrist
DX: G62.9 Polyneuropathy, unspecified (principal); M20.41 Other hammer toe(s) (acquired), right foot; M20.42 Other hammer toe(s) (acquired), left foot; M21.6X9 Other acquired deformities of unspecified foot; M72.2 Plantar fascial fibromatosis; M79.671 Pain in right foot; M79.672 Pain in left foot; R22.40 Localized swelling, mass and lump, unspecified lower limb
CPT/HCPCS: 73630; 76882

== ENCOUNTER → 2020-03-19 15:24 | Outpatient (CLI) | payer BC, SELFPAY ==
--- NOTE | 2020-03-19 15:31 | XR_ITS ---
PROCEDURE: XR ANKLE RT MIN 3V CLINICAL INDICATION: WOUND OF RIGHT ANKLE, DIABETES Injury with pain COMPARISON: No exams were available for comparison FINDINGS: No fracture or dislocation. No lytic or blastic change. There is normal mineralization. The joint spaces are well-preserved. No significant degenerative/arthritic changes. No erosive changes evident. Other findings:None. IMPRESSION: No acute findings. Dictated by: Artem Kaminski MD 03/19/2020 16:57 Electronically signed by Artem Kaminski MD in [place] 03/19/2020 16:57
== END ==
PROVIDERS: PCP Internal Medicine Adolescent Medicine; Visit Provider Nurse Practitioner Family
DX: S91.001A Unspecified open wound, right ankle, initial encounter (principal); E11.42 Type 2 diabetes mellitus with diabetic polyneuropathy
CPT/HCPCS: 73610

== ENCOUNTER → 2021-08-16 11:05 | Outpatient (CLI) | payer BC, SELFPAY | PROVIDERS: PCP Nurse Practitioner Family; Visit Provider Nurse Practitioner | DX: Z20.822 Contact with and (suspected) exposure to COVID-19 (principal); U07.1 COVID-19 | CPT/HCPCS: C9803; U0003; U0005 ==

== ENCOUNTER → 2021-12-18 11:38 | Outpatient (CLI) | payer BC, SELFPAY | PROVIDERS: PCP Nurse Practitioner Family; Visit Provider Nurse Practitioner Family | DX: U07.1 COVID-19 (principal) | CPT/HCPCS: C9803; U0003; U0005 ==

== ENCOUNTER 2021-12-31 21:02 | Emergency (ER) | payer BC, SELFPAY ==
[2021-12-31 21:04] VITALS: BP 165/97; PULSE 102; RESP 20; TEMP 36.9; O2SAT 98; BMI 32.3
--- NOTE | 2021-12-31 21:11 | ECG_ITS ---
APPROVED REPORT Exam: Resting ECG HR:99 bpm ECG Measurements Heart Rate 99 AXES MN 149 P 50 QRSd 86 QRS 32 QT 347 T 45 QTc 403 Conclusion SINUS RHYTHM POSSIBLE LEFT ATRIAL ENLARGEMENT [-0.1mV P-WAVE IN V1/V2] BORDERLINE ECG UNCONFIRMED REPORT Electronically signed by : Abel Khoury MD 01/01/2022 09:02:54
[2021-12-31 21:30] VITALS: BP 130/72; PULSE 99; O2SAT 95
--- NOTE | 2021-12-31 21:32 | XR_ITS ---
PROCEDURE INFORMATION: Exam: XR Chest Exam date and time: 12/31/2021 9:32 PM Age: 61 years old Clinical indication: Shortness of breath; Prior surgery; Surgery date: 6+ months; Surgery type: Cardiac stents; Additional info: Shortness of air recent covid TECHNIQUE: Imaging protocol: XR of the chest. Views: 2 views. COMPARISON: CR XR CHEST 2V 09/18/2019 5:42 AM FINDINGS: Lungs: Unremarkable. No consolidation. Pleural spaces: Unremarkable. No pleural effusion. No pneumothorax. Heart/Mediastinum: Unremarkable. No cardiomegaly. Bones/joints: Unremarkable. IMPRESSION: No acute findings. CT findings of subsegmental right basilar atelectasis not well demonstrated on x-ray.
--- NOTE | 2021-12-31 21:33 | CT_ITS ---
PROCEDURE INFORMATION: Exam: CTA Chest With Contrast Exam date and time: 12/31/2021 9:33 PM Age: 61 years old Clinical indication: Shortness of breath; Prior surgery; Surgery date: 6+ months; Surgery type: Cardiac stents; Additional info: Shortness of breath recent covid TECHNIQUE: Imaging protocol: Computed tomographic angiography of the chest with contrast. 3D rendering (Not supervised by radiologist): MIP and/or 3D reconstructed images were created by the technologist. Radiation optimization: All CT scans at this facility use at least one of these dose optimization techniques: automated exposure control; mA and/or kV adjustment per patient size (includes targeted exams where dose is matched to clinical indication); or iterative reconstruction. Contrast material: ISOVUE 370; Contrast volume: 75 ml; Contrast route: INTRAVENOUS (IV); COMPARISON: [facility] CTA-CHEST 11/07/2016 9:04 AM FINDINGS: Pulmonary arteries: Normal. No pulmonary emboli. Aorta: Unremarkable. No aortic aneurysm. No aortic dissection. Lungs: Subsegmental right basilar atelectasis , which could be related to endobronchial lesion versus mucous plug. Recommend 3 month follow-up confirm resolution. Pleural spaces: Unremarkable. No pneumothorax. No pleural effusion. Heart: Moderate three-vessel calcific atherosclerotic disease of the coronary arteries. Lymph nodes: Unremarkable. No enlarged lymph nodes. Bones/joints: Unremarkable. No acute fracture. Soft tissues: Unremarkable. Other findings: Right hilar calcified nodes likely related to prior granulomatous process. IMPRESSION: Subsegmental right basilar atelectasis, which could be related to endobronchial lesion versus mucous plug. Recommend 3 month follow-up to confirm resolution. No CT angiography evidence of pulmonary embolism.
[2021-12-31 21:38] LABS: Basophils # 0.1 K/mm3 (0-0.2); Basophils % 1.2 % (0.1-2.0); Eosinophils # 0.2 K/mm3 (0.0-0.4); Eosinophils % 1.6 % (0.1-12.0); Hematocrit 51.5 % (42.0-52.0); Hemoglobin 16.6 g/dL (14.1-18.0); Lymphocytes # 0.8 K/mm3 (0.7-4.5); Lymphocytes % 7.7 % (10-50); Mean Corpuscular HGB Conc 32.2 g/dL (31.8-35.4); Mean Corpuscular Hemoglobin 29.9 pg (27.0-31.2); Mean Corpuscular Volume 92.9 fl (80-94); Mean Platelet Volume 8.1 fl (7.4-10.4); Monocytes # 0.6 K/mm3 (0.1-1.0); Monocytes % 5.7 % (1.7-9.3); Neutrophils # 8.6 K/mm3 (1.8-7.8); Neutrophils % 83.8 % (37.0-80.0); Platelet Count 301 K/mm3 (142-424); Red Blood Count 5.54 M/mm3 (4.60-6.20); Red Cell Distribution Width 13.5 % (11.5-17.5); White Blood Count 10.3 K/mm3 (4.8-10.8)
[2021-12-31 21:43] LABS: Alanine Aminotransferase 27 U/L (12-78); Albumin Level 4.2 g/dl (3.5-5.0); Albumin/Globulin Ratio 1.6 (1.1-1.8); Alkaline Phosphatase 120 U/L (38-126); Amylase 66 U/L (30-110); Anion Gap 14.6 mEq/L (5-15); Aspartate Amino Transferase 29 U/L (17-59); Bilirubin,Total 0.6 mg/dl (0.2-1.3); Blood Urea Nitrogen 19 mg/dl (9-20); Carbon Dioxide 26 mmol/L (22.0-30.0); Chloride 100 mmol/L (98-107); Creatinine Clearance Estimated 98 mL/min (50-200); Estimated Glomerular Filt Rate 76 ml/min (>60); GFR (African American) 92 ML/MIN (>60); Globulin 2.7 g/dL (1.3-3.2); Glucose 381 mg/dl (74-100); Potassium 3.6 mmoL/L (3.5-5.1); Sodium 137 mmol/L (136-145); Total Protein,Serum 6.9 g/dl (6.3-8.2)
--- NOTE | 2021-12-31 21:55 | PC.NURSE ---
Pt gone to rad
[2021-12-31 22:00] LABS: Troponin I < 0.01 ng/ml (0.00-0.034)
[2021-12-31 22:02] LABS: Procalcitonin 0.102 ng/mL (0.0-2.0)
[2021-12-31 22:05] LABS: Erythrocyte Sedimentation Rate 7 mm/hr (0-20)
--- NOTE | 2021-12-31 22:07 | PC.NURSE ---
Pt back from rad
[2021-12-31 22:30] VITALS: BP 147/79; PULSE 93; O2SAT 96
--- NOTE | 2021-12-31 23:02 | HMH.EDSOB ---
ED Disposition Clinical Impression: COVID-19 Reactive airway disease Qualifiers: Asthma severity: moderate Asthma persistence: persistent Asthma complication type: with acute exacerbation Qualified Code(s): J45.41 - Moderate persistent asthma with (acute) exacerbation Coronary artery disease Qualifiers: Coronary Disease-Associated Artery/Lesion type: unspecified vessel or lesion type [place] vs. transplanted heart: [place] heart Associated angina: without angina Qualified Code(s): I25.10 - Atherosclerotic heart disease of [place] coronary artery without angina pectoris Diabetes mellitus Qualifiers: Diabetes mellitus type: type 2 Diabetes mellitus residential insulin use: unspecified terminal worker insulin use status Diabetes mellitus complication status: with other specified complication Qualified Code(s): E11.69 - Type 2 diabetes mellitus with other specified complication Disposition: Home, Self-Care Condition on Discharge: Good Instructions: DI for Shortness of Breath Additional Instructions: call pcp for follow up Referrals: Camilla De La Torre APRN [Primary Care Provider] - - Critical Care Critical Care Time: No Attestation: On 12/31/21, the high probability of a clinically significant, sudden or life threatening deterioration of the following system(s) required my full and direct attention, intervention and personal management. The time I documented below is in addition to time spent performing reported procedures but includes the following listed in this critical care notation. Medical Decision Making - Medical Records Medical records reviewed: Yes: I reviewed the patient's medical records. - Olaf Inquiry Pt receiving controlled substance: No Vital Signs: 12/31/21 21:04 12/31/21 21:30 12/31/21 22:30 Temperature 98.5 F Temperature Source Oral Pulse Rate 99 H 93 H Pulse Rate [Apical] 102 H Respiratory Rate 20 Blood Pressure 130/72 147/79 H Blood Pressure [Right Arm] 165/97 H Blood Pressure Mean [Right Arm] 119 Blood Pressure Source [Right Arm] Automatic Cuff Blood Pressure Position [Right Arm] Sitting 02 Sat by Pulse Oximetry 98 95 96 Oxygen Delivery Method Room Air Room Air Room Air - Lab Data Lab results reviewed: Yes: I reviewed the patient's lab results. Lab Results 12/31/21 21:19: WBC 10.3, RBC 5.54, Hgb 16.6, Hct 51.5, MCV 92.9, MCH 29.9, MCHC 32.2, RDW 13.5, Plt Count 301, MPV 8.1, Neut % (Auto) 83.8 H, Lymph % (Auto) 7.7 L, [place] % (Auto) 5.7, Eos % (Auto) 1.6, Baso % (Auto) 1.2, Neut # (Auto) 8.6 H, Lymph # (Auto) 0.8, [place] # (Auto) 0.6, Eos # (Auto) 0.2, Baso # (Auto) 0.1, ESR 7 12/31/21 21:19: Sodium 137, Potassium 3.6, Chloride 100, Carbon Dioxide 26, Anion Gap 14.6, BUN 19, Creatinine 1.00, Estimated Creat Clear 98, Estimated GFR 76, Est GFR ( Amer) 92, Glucose 381 H, Calcium 9.0, Total Bilirubin 0.6, AST 29, ALT 27, Alkaline Phosphatase 120, C-Reactive Protein 11.0 H, Total Protein 6.9, Albumin 4.2, Globulin 2.7, Albumin/Globulin Ratio 1.6, Amylase 66, Procalcitonin 0.102 12/31/21 21:19: Troponin I < 0.01 Result diagrams: 12/31/21 21:19 12/31/21 21:19 Orders (Tests/Meds): ED MEDICATIONS Generic Name Dose Route Start Last Admin Trade Name Freq PRN Reason Stop Dose Admin Sodium Chloride 1,000 mls @ 999 mls/hr 12/31/21 21:45 12/31/21 21:51 Sod Chlor 0.9% 1000ml Bag IV 12/31/21 22:45 999 mls/hr .Q1H1M RICKY Administration Discontinued Medications Generic Name Dose Route Start Last Admin Trade Name Freq PRN Reason Stop Dose Admin Dexamethasone Sodium Phosphate 10 mg 12/31/21 21:50 12/31/21 21:51 Dexamethasone 4mg/Ml 5ml Mdv IV 12/31/21 21:51 10 mg ONCE ONE Administration Iopamidol 70 ml 12/31/21 22:09 12/31/21 22:10 Iopamidol-370 (76%);100ml Bottle IV 12/31/21 22:10 70 ml ONCE ONE Administration Sodium Chloride 10 ml 12/31/21 22:09 12/31/21 22:10 Sodium Chloride 0.9% 10ml Syr (Rad Only) IV 12/31/21 22:10 10
[2021-12-31 23:09] VITALS: BP 140/74; PULSE 95; RESP 20; TEMP 37; O2SAT 97
[2021-12-31 23:25] LABS: Hemoglobin A1C 12.8 % (4.0-6.0)
== END 2021-12-31 23:33 | disposition home or self-care (01) ==
PROVIDERS: Emergency Provider Emergency Medicine; PCP Nurse Practitioner Family
DX: U07.1 COVID-19 (principal); J45.41 Moderate persistent asthma with (acute) exacerbation; E11.9 Type 2 diabetes mellitus without complications; I25.10 Atherosclerotic heart disease of native coronary artery without angina pectoris
CPT/HCPCS: 71046; 71275; 80053; 82150; 83036; 84145; 84484; 85025; 85651; 86140; 93005; 96365; 96375; 99283; Q9967

== ENCOUNTER → 2022-01-03 09:14 | Outpatient (CLI) | payer BC, SELFPAY ==
[2022-01-04 10:42] LABS: Covid-19 Nasal PCR Sendout Lex NOT DETECTED
== END ==
PROVIDERS: Visit Provider Nurse Practitioner
DX: Z20.822 Contact with and (suspected) exposure to COVID-19 (principal)
CPT/HCPCS: C9803; U0004; U0005

== ENCOUNTER → 2022-11-10 08:37 | Outpatient (CLI) | payer BC, SELFPAY ==
--- NOTE | 2022-11-10 08:45 | US_ITS ---
FINAL REPORT CLINICAL HISTORY: UNCONTROLLED TYPE II DIABETES,ELEVATED LIVER ENZYMES FINDINGS: Sonographic images of the right upper quadrant were obtained. The pancreas is partially obscured. The liver is increased echogenicity consistent with fatty infiltration. The gallbladder appears normal without evidence of gallstones.There is no evidence of biliary ductal dilatation.The common duct measures 4mm. The right kidney measures 12.4 cm in length. There is mild hydronephrosis. IMPRESSION: Fatty liver. Right hydronephrosis. Reviewed, Interpreted and Dictated by Pablo Gonzalez III, MD Transcribed by Victoria Preciado Authenticated and [facility]
== END ==
PROVIDERS: PCP Nurse Practitioner Family; Visit Provider Nurse Practitioner Family
DX: R74.8 Abnormal levels of other serum enzymes (principal); E11.65 Type 2 diabetes mellitus with hyperglycemia; Z79.84 Long term (current) use of oral hypoglycemic drugs
CPT/HCPCS: 76705

== ENCOUNTER 2023-09-17 13:40 | Emergency (ER) | payer BC, SELFPAY ==
[2023-09-17 13:41] VITALS: BP 151/92; PULSE 90; RESP 18; TEMP 37.1; O2SAT 96; BMI 33.0
[2023-09-17 14:05] LABS: UTC Strep Screen (Rapid) Negative (Negative)
--- NOTE | 2023-09-17 14:06 | EXP.UTC ---
Discharge Plan Disposition Patient Disposition: Home, Self-Care Condition: Good Prescriptions Prescriptions: New benzonatate [benzonatate] 100 mg capsule 100 mg PO TIDP PRN (Reason: Cough) Qty: 30 0RF methylprednisolone 4 mg Tablets,Dose Pack 4 mg PO DIRECTED Qty: 21 0RF amoxicillin-pot clavulanate 875-125 mg Tablet 1 tab PO Q12H Qty: 20 0RF No Action Tresiba FlexTouch U-100 100 unit/mL (3 mL) insulin pen 7 unit SQ DAILY atorvastatin 80 MG tablet 80 mg PO HS metformin 1,000 MG tablet 1,000 mg PO BID glimepiride 4 MG tablet 4 mg PO DAILY Patient Comments: TAKE 1 TABLET BY MOUTH ONCE DAILY dapagliflozin propanediol 10 MG tablet 10 mg PO DAILY Patient Comments: TAKE 1 TABLET BY MOUTH IN THE MORNING niacin 500 MG tablet extended release 24 hr 500 mg PO HS Patient Comments: TAKE 1 TABLET BY MOUTH AT BEDTIME irbesartan 75 MG tablet 75 mg PO DAILY aspirin 81 MG tablet,chewable 81 mg PO DAILY 30 Days Qty: 30 2RF ticagrelor 90 MG tablet 90 mg PO BID 30 Days Qty: 60 5RF Referrals Follow up/Referrals: Camilla Grant APRN [Primary Care Provider] - See instructions Activity Restrictions/Add. Instructions Additional Instructions/Restrictions: Drink plenty of fluids. Take tylenol or ibuprofen for pain or fever. Take the medications as directed. Follow up with your regular doctor. GO TO THE ER FOR ANY WORSENING SYMPTOMS Clinical Impressions Clinical Impression: Sinusitis Instructions Patient Instructions: Sinusitis, DI for Sinusitis Discharge ED Provider: Tim Li [facility] General Stated complaint: sore throat, headache, congestion Mode of Arrival: Ambulatory Source of Information: Patient Limitations: No Limitations Time Seen by Provider: 09/17/23 14:06 Description of Symptoms (Recalled from Triage Doc. by RN): sore throat, HASSAN, cough, and sinuses HEENT Symptoms (Recalled from RN notes): Yes Resp Symptoms (Recalled from RN notes): No Skin Symptoms (Recalled from RN notes): No MS Symptoms (Recalled from RN notes): No Functional Status (Recalled from RN notes): n/a History of Present Illness Provider Complaint: He states that for the past 4 days he has had sinus congestion, sinus drainage, sore throat and malaise. Related Data Home Medications Medication Instructions Recorded Confirmed atorvastatin 80 mg tablet 80 mg PO HS Cholesterol 09/18/19 11/12/19 dapagliflozin propanediol 10 mg 10 mg PO DAILY Diabetes 09/18/19 11/12/19 tablet glimepiride 4 mg tablet 4 mg PO DAILY Diabetes 09/18/19 11/12/19 irbesartan 75 mg tablet 75 mg PO DAILY BLOOD PRESSURE 09/18/19 11/12/19 metformin 1,000 mg tablet 1,000 mg PO BID Diabetes 09/18/19 11/12/19 niacin 500 mg tablet,extended 500 mg PO HS Cholesterol 09/18/19 11/12/19 release 24 hr insulin degludec 100 unit/mL (3 7 unit SQ DAILY 11/12/19 11/12/19 mL) subcutaneous pen (Tresiba FlexTouch U-100 insulin) Previous Rx's Medication Instructions Recorded aspirin 81 mg chewable tablet 81 mg PO DAILY 30 days ##30 09/19/19 ticagrelor 90 mg tablet 90 mg PO BID 30 days #60 tabs 09/19/19 amoxicillin 875 mg-potassium 1 tab PO Q12H #20 tabs 09/17/23 clavulanate 125 mg tablet benzonatate 100 mg capsule 100 mg PO TIDP PRN Cough #30 caps 09/17/23 methylprednisolone 4 mg tablets in 4 mg PO DIRECTED #21 tabs 09/17/23 a dose pack Allergies Allergy/AdvReac Type Severity Reaction Status Date / Time No Known Allergies Allergy Verified 09/17/23 13:59 Worker's Comp Is this a Worker's Comp case?: No [facility] Disclaimer: The information contained in this section may have been updated after the patient was seen, as this information can be updated by other users. Social History Smoking Status: Never smoker second hand exposure: No alcohol intake: former substance use type: denies use curre
[2023-09-17 14:48] VITALS: BP 151/92; PULSE 90; RESP 18; TEMP 37.1; O2SAT 96
== END 2023-09-17 14:45 | disposition home or self-care (01) ==
PROVIDERS: Emergency Provider Nurse Practitioner Family; PCP Nurse Practitioner Family
DX: J01.90 Acute sinusitis, unspecified (principal); R53.81 Other malaise
CPT/HCPCS: 87880; 99204; 99212; G0463

== ENCOUNTER 2024-01-29 15:23 | Outpatient (CLI) | payer BC, SELFPAY ==
--- NOTE | 2024-01-29 15:30 | XR_ITS ---
FINAL REPORT CLINICAL HISTORY: ULCER LT FOOT W/ FAT LAYER COMPARISON: 11/14/2019 FINDINGS: LEFT FOOT: Three views of the left foot were obtained. There is no acute fracture or dislocation. Mild degenerative change is present. No focal erosions are identified, however MRI is more sensitive for evaluation of possible osteomyelitis. Vascular calcifications are present. IMPRESSION: No acute bony abnormality. No focal erosions are identified, however MRI is more sensitive for evaluation of possible osteomyelitis. Reviewed, Interpreted and Dictated by Pablo Gonzalez III, MD Transcribed by Lacy Alicia Authenticated and [facility]
== END 2024-01-29 23:59 ==
LOC: RAD 15:26
PROVIDERS: PCP Nurse Practitioner Family; Visit Provider Internal Medicine Adolescent Medicine
DX: L97.522 Non-pressure chronic ulcer of other part of left foot with fat layer exposed (principal)
CPT/HCPCS: 73630

== ENCOUNTER 2024-12-18 09:55 | Emergency (ER) | payer MEDICARE, SELFPAY ==
[2024-12-18] VITALS (22 sets, daily range): BP systolic 128–205; BP diastolic 76–113; PULSE 78–86; RESP 10–20; TEMP 36.6–36.7; O2SAT 96–99; BMI 32.3
--- NOTE | 2024-12-18 10:05 | ECG_ITS ---
APPROVED REPORT Exam: Resting ECG HR:91 bpm ECG Measurements Heart Rate 91 AXES KS 133 P 65 QRSd 85 QRS 35 QT 368 T 67 QTc 417 Conclusion SINUS RHYTHM NORMAL ECG No STEMI Electronically signed by : JASPER PARSONS, 12/18/2024 15:32:12
--- NOTE | 2024-12-18 10:43 | CT_ITS ---
FINAL REPORT TECHNIQUE: thin section axial CT with and without IV contrast supplemented with multiplanar 3-D reconstruction of the head. This study was performed with techniques to keep radiation doses as low as reasonably achievable, (ALARA)individualized dose reduction techniques using automated exposure control or adjustment of mA and/or kV according to the patient's size were employed. CLINICAL HISTORY: vertigo FINDINGS: The cranial circulation is unremarkable. There is no significant stenosis, aneurysm or occlusion. IMPRESSION: No evidence of stenosis or major branch occlusion. Reviewed, Interpreted and Dictated by Tae Hart MD Transcribed by Ashley Toure Authenticated and [facility]
--- NOTE | 2024-12-18 10:43 | CT_ITS ---
FINAL REPORT TECHNIQUE: multiple axial CT images were performed from the foramen magnum to the vertex without enhancement. This study was performed with techniques to keep radiation doses as low as reasonably achievable, (ALARA). Individualized dose reduction techniques using automated exposure control or adjustment of mA and/or kV according to the patient's size were employed. CLINICAL HISTORY: vertigo FINDINGS: There is mild atrophy. The ventricles are proportional to a degree of atrophy. There is periventricular white matter change likely related to small vessel disease. There is no evidence of hemorrhage. No masses are identified. No extra-axial fluid is seen. The sinuses are normal. IMPRESSION: Atrophy without acute intracranial process. Reviewed, Interpreted and Dictated by Tae Hart MD Transcribed by Ashley Toure Authenticated and [facility]
--- NOTE | 2024-12-18 10:43 | CT_ITS ---
FINAL REPORT TECHNIQUE: NASCET technique utilized for stenosis evaluation. This study was performed with techniques to keep radiation doses as low as reasonably achievable, (ALARA). Individualized dose reduction techniques using automated exposure control or adjustment of mA and/or kV according to the patient's size were employed. CLINICAL HISTORY: vertigo FINDINGS: RIGHT CAROTID: No significant stenosis is seen of the cervical common or internal carotid artery. LEFT CAROTID: There is mild to moderate vascular calcification of the proximal left ICA without significant stenosis. VERTEBRALS: The vertebral arteries are codominant. No significant stenosis is present. IMPRESSION: No evidence of significant stenosis. Reviewed, Interpreted and Dictated by Tae Hart MD Transcribed by Ashley Toure Authenticated and [facility]
[2024-12-18] MEDS: MECLIZINE 25MG TABLET 50 MG PO (10:54)
[2024-12-18] MEDS: predniSONE 20MG TAB 40 MG PO (10:54)
--- NOTE | 2024-12-18 10:55 | ED_ITS ---
Discharge Plan Disposition Patient Disposition: Home, Self-Care Condition: Good Prescriptions Prescriptions: New meclizine 25 mg tablet 25 mg PO QID PRN (Reason: dizziness) Qty: 20 0RF cetirizine [Zyrtec] 10 mg tablet 10 mg PO DAILY Qty: 30 0RF No Action Tresiba FlexTouch U-100 100 unit/mL (3 mL) insulin pen 7 unit SQ DAILY benzonatate [benzonatate] 100 mg capsule 100 mg PO TIDP PRN (Reason: Cough) Qty: 30 0RF methylprednisolone 4 mg Tablets,Dose Pack 4 mg PO DIRECTED Qty: 21 0RF amoxicillin-pot clavulanate 875-125 mg Tablet 1 tab PO Q12H Qty: 20 0RF atorvastatin 80 MG tablet 80 mg PO HS metformin 1,000 MG tablet 1,000 mg PO BID glimepiride 4 MG tablet 4 mg PO DAILY Patient Comments: TAKE 1 TABLET BY MOUTH ONCE DAILY dapagliflozin propanediol 10 MG tablet 10 mg PO DAILY Patient Comments: TAKE 1 TABLET BY MOUTH IN THE MORNING niacin 500 MG tablet extended release 24 hr 500 mg PO HS Patient Comments: TAKE 1 TABLET BY MOUTH AT BEDTIME irbesartan 75 MG tablet 75 mg PO DAILY aspirin 81 MG tablet,chewable 81 mg PO DAILY 30 Days Qty: 30 2RF ticagrelor 90 MG tablet 90 mg PO BID 30 Days Qty: 60 5RF Referrals Follow up/Referrals: Vera Hylton APRN [Nurse Practitioner] - See instructions Camilla Grant APRN [Primary Care Provider] - See instructions Activity Restrictions/Add. Instructions Additional Instructions/Restrictions: You were evaluated in the emergency department today. Please keep an eye on your blood sugar at home. Make sure you stay hydrated. Please follow-up closely as an outpatient with primary care for evaluation management of your vertigo. 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 Return to the emergency department for new or worsening symptoms. Clinical Impressions Clinical Impression: Vertigo, Hyperglycemia, Dehydration Stand Alone Forms Stand Alone Forms: Work/School Release Instructions Patient Instructions: DI for Dehydration -- Adult, DI for Vertigo, DI for Hyperglycemia -- Adult Print Language Print Language: [place] Discharge ED Provider: Mirlande Haji General Adult HPI General Chief complaint: Dizziness Stated complaint: dizziness, headache Time Seen by Provider: 12/18/24 10:21 Mode of Arrival: Wheelchair Source of Information: Patient Limitations: No Limitations Description of Symptoms (Recalled from ER Triage Doc. by RN): pt presents to ED with c/o dizziness, headache, fall last week. pt reports symptoms ongoing for the past 2 weeks. symptoms worse today. glucose 427 History of Present Illness HPI narrative: This patient is a 64-year-old male with a history of diabetes, CAD, hypertension, hyperlipidemia, and reactive airway disease presenting to the emergency department for evaluation with concern for dizziness. Patient states over the last 2 weeks, he has had dizziness as if the room spinning anytime he has position change or sudden head movement. He notes that he had issues like this 40 years ago because of inner ear issues. He notes that he was diagnosed with vertigo, but it went away. He notes that for the last 2 weeks, this has been persistent. He has not sought out evaluation by anyone and has not been taking any medications at home for this. He denies any ear pain or other illness. He also denies any vision changes, numbness, tingling, unilateral weakness, discoordination, gait instability, or other issues. He does note a fall last week, but he did not hit his head or lose consciousness or become injured as a result of this. Related Data Home Medications ?Medication ?Instructions ?Recorded ?Confirmed atorvastatin 80 mg tablet 80 mg PO HS Cholesterol 09/18/19 11/12/19 dapagliflozin propanediol 10 mg 10 mg PO DAILY Diabetes 09/18/19 11/12/19 tablet glimepiride 4 mg tablet 4 mg PO DAILY Diabetes 09/18/19 11/12/19 irbesartan 75 mg tablet 75 mg PO DAILY BLOOD PRESSURE 09/18/19 11/12/19 metformin 1,000 mg tablet 1,000 mg PO BID Diabetes 09/18/19 11/12/19 niacin 500 mg tablet,extended 500 mg PO HS Cholesterol 09/18/19 11/12/19 release 24 hr insulin degludec 100 unit/mL (3 7 unit SQ DAILY 11/12/19 11/12/19 mL) subcutaneous pen (Tresiba FlexTouch U-100 insulin) Previous Rx's ?Medication ?Instructions ?Recorded aspirin 81 mg chewable tablet 81 mg PO DAILY 30 days ##30 09/19/19 ticagrelor 90 mg tablet 90 mg PO BID 30 days #60 tabs 09/19/19 amoxicillin 875 mg-potassium 1 tab PO Q12H #20 tabs 09/17/23 clavulanate 125 mg tablet benzonatate 100 mg capsule 100 mg PO TIDP PRN Cough #30 caps 09/17/23 methylprednisolone 4 mg tablets in 4 mg PO DIRECTED #21 tabs 09/17/23 a dose pack cetirizine 10 mg tablet (Zyrtec) 10 mg PO DAILY #30 tabs 12/18/24 meclizine 25 mg tablet 25 mg PO QID PRN dizziness #20 tabs 12/18/24 Allergies Allergy/AdvReac Type Severity Reaction Status Date / Time No Known Allergies [facility]17[facility]23 13[facility] Disclaimer: The information contained in this section may have been updated after the patient was seen, as this information can be updated by other users. Social History Smoking Status: Never smoker second hand exposure: No alcohol intake: former substance use type: denies use current occupational status: employed Travel in the last 8 weeks: None housing: house current occupation: [employer] caffeine: Yes ( 15 cans of mtPicwing a day ) Have you lived/traveled outside [place] in past 30 days?: No Contact w/someone who lives/traveled outside [place] past 30 days?: No Exposure to someone with infectious disease in past 14 days?: No Do you have a fever (greater than 100.4 F or 38 C)?: No Have you tested positive for COVID-19: No Exposed to someone with COVID-19 in past 14 days?: No Do you have a sore throat?: No Do you have a cough?: No Do you have any weakness?: No Do you have any diarrhea?: No Are you experiencing any unusual bleeding?: No Do you have any muscle aches/pain?: No Do you have any abdominal pain?: No Are you experiencing loss of taste or smell?: No Other Medical History Have you received the Flu Vaccine for this season: No Have you received the Pneumonia Vaccine: No ROS Obtained: Yes All systems reviewed & no additional complaints except as documented Physical Exam General General appearance: alert and in no apparent distress Head Head exam: atraumatic and normocephalic Eye Eye exam: Present normal appearance, PERRL and EOMI ENT ENT exam: Present normal exam, normal oropharynx, mucous membranes moist and normal external ear exam Neck Neck exam: Present normal inspection, full ROM and trachea midline; Absent tenderness Chest Chest inspection: Present normal inspection and symmetric chest wall rise; Absent tenderness Respiratory Respiratory exam: Present normal lung sounds bilaterally; Absent respiratory distress, wheezes, stridor or accessory muscle use Cardiovascular Cardiovascular exam: Present regular rate and normal rhythm Abdominal Exam Abdominal exam: Present soft; Absent distention, tenderness or guarding Extremities Exam Extremities exam: Present normal inspection, full ROM and normal capillary refill; Absent tenderness or edema Back Exam Back exam: Present normal inspection and full ROM; Absent tenderness Neurological Exam Neurological exam: Present alert, oriented X3, CN II-XII intact and normal gait; Absent motor sensory deficit Psychiatric Psychiatric exam: Present normal affect and normal mood Skin Skin exam: Present warm and dry Medical Decision Making Medical Records Medical records reviewed: Yes I reviewed the patient's medical records. Screening: Per USPSTF and CDC recommendations, given the prevalence of disease in our region, it is our hospital?s policy to screen for HIV and viral Hepatitis for all patients aged 18 and over and those with ongoing risk factors. Olaf Inquiry Pt receiving controlled substance: No Vital Signs: 12/18/24 10:15 12/18/24 10:39 12/18/24 10:40 Temperature 98.0 F Temperature Source Oral Pulse Rate 86 85 Pulse Rate [Left Radial] 83 Respiratory Rate 16 16 15 Blood Pressure 177/95 H Blood Pressure [Right Arm] 205/113 H Blood Pressure Mean Blood Pressure Mean [Right Arm] 143 Blood Pressure Source Blood Pressure Position 02 Sat by Pulse Oximetry 98 96 97 Oxygen Delivery Method Room Air 12/18/24 10:45 12/18/24 10:50 12/18/24 11:00 Temperature Temperature Source Pulse Rate 84 82 82 Pulse Rate [Left Radial] Respiratory Rate 14 17 17 Blood Pressure 168/90 H 167/82 H Blood Pressure [Right Arm] Blood Pressure Mean Blood Pressure Mean [Right Arm] Blood Pressure Source Blood Pressure Position 02 Sat by Pulse Oximetry 97 96 97 Oxygen Delivery Method Room Air 12/18/24 11:10 12/18/24 11:30 12/18/24 11:40 Temperature Temperature Source Pulse Rate 84 81 82 Pulse Rate [Left Radial] Respiratory Rate 19 13 20 Blood Pressure 151/90 H 167/90 H 154/81 H Blood Pressure [Right Arm] Blood Pressure Mean Blood Pressure Mean [Right Arm] Blood Pressure Source Blood Pressure Position 02 Sat by Pulse Oximetry 97 99 96 Oxygen Delivery Method Room Air Room Air Room Air 12/18/24 11:50 12/18/24 12:00 12/18/24 12:10 Temperature Temperature Source Pulse Rate 78 80 80 Pulse Rate [Left Radial] Respiratory Rate 12 12 14 Blood Pressure 150/82 H 147/85 H 143/79 H Blood Pressure [Right Arm] Blood Pressure Mean Blood Pressure Mean [Right Arm] Blood Pressure Source Blood Pressure Position 02 Sat by Pulse Oximetry 98 96 98 Oxygen Delivery Method Room Air 12/18/24 12:15 12/18/24 12:20 12/18/24 12:30 Temperature Temperature Source Pulse Rate 84 82 85 Pulse Rate [Left Radial] Respiratory Rate 16 10 L 13 Blood Pressure 154/87 H 156/84 H Blood Pressure [Right Arm] Blood Pressure Mean Blood Pressure Mean [Right Arm] Blood Pressure Source Blood Pressure Position 02 Sat by Pulse Oximetry 97 97 98 Oxygen Delivery Method 12/18/24 12:40 12/18/24 12:40 12/18/24 12:45 Temperature Temperature Source Pulse Rate 81 80 Pulse Rate [Left Radial] Respiratory Rate 14 14 Blood Pressure 136/79 136/79 Blood Pressure [Right Arm] Blood Pressure Mean 100 Blood Pressure Mean [Right Arm] Blood Pressure Source Blood Pressure Position 02 Sat by Pulse Oximetry 97 99 Oxygen Delivery Method 12/18/24 12:50 12/18/24 13:00 12/18/24 13:11 Temperature Temperature Source Pulse Rate 82 81 78 Pulse Rate [Left Radial] Respiratory Rate 13 20 16 Blood Pressure 137/78 155/85 H 128/76 Blood Pressure [Right Arm] Blood Pressure Mean Blood Pressure Mean [Right Arm] Blood Pressure Source Blood Pressure Position 02 Sat by Pulse Oximetry 99 98 99 Oxygen Delivery Method 12/18/24 13:15 12/18/24 13:21 Temperature 97.9 F Temperature Source Oral Pulse Rate 80 81 Pulse Rate [Left Radial] Respiratory Rate 11 L 13 Blood Pressure 128/76 Blood Pressure [Right Arm] Blood Pressure Mean Blood Pressure Mean [Right Arm] Blood Pressure Source Automatic Cuff Blood Pressure Position Sitting 02 Sat by Pulse Oximetry 98 Oxygen Delivery Method Room Air Lab Data Lab results reviewed: Yes I reviewed the patient's lab results. Lab Results 12/18/24 10:14: WBC 10.1, RBC 6.24 H, Hgb 17.8, Hct 54.9 H, MCV 88.0, MCH 28.5, MCHC 32.4, RDW 13.2, Plt Count 348, MPV 9.5, Neut % (Auto) 59.7, Lymph % (Auto) 28.8, [place] % (Auto) 8.8, Eos % (Auto) 1.8, Baso % (Auto) 0.5, Neut # (Auto) 6.0, Lymph # (Auto) 2.9, [place] # (Auto) 0.9, Eos # (Auto) 0.2, Baso # (Auto) 0.1, Sodium 140, Potassium 4.6, Chloride 102, Carbon Dioxide 23, Anion Gap 19.6 H, BUN 18, Creatinine 0.80, Estimated Creat Clear 94, Estimated GFR 97, Est GFR ( Amer) 117, Glucose 322 H, Calcium 9.5, Total Bilirubin 1.0, AST 57, ALT 74, Alkaline Phosphatase 105, Troponin I < 0.01, Total Protein 8.0, Albumin 5.0, Globulin 3.0, Albumin/Globulin Ratio 1.7, Acetone Level None detected, HCV Ab HERVE w/Rflx PCR Qn Negative, HIV Ag/Ab Combo Qual Negative 12/18/24 10:56: VBG pH 7.43 H, VBG pCO2 31.6 L, VBG pO2 134.1 H, VBG HCO3 20.4 L , VBG Total CO2 21.4 L, VBG O2 Saturation 98.7 H, VBG Base Excess -3.9 L, VBG Lactic Acid 2.3 H 12/18/24 10:14 12/18/24 10:14 Orders (Tests/Meds): ED MEDICATIONS Discontinued Medications Generic Name Dose Route Start Last Admin Trade Name Freq PRN Reason Stop Dose Admin Fluticasone Propionate 1 spray 12/18/24 10:44 12/18/24 12:12 Fluticasone Prop 50mcg Nasal [place] 16gm NS 12/18/24 10:45 1 spray ONCE ONE Administration Lactated Ringer's 1,000 mls @ 999 mls/hr 12/18/24 12:13 12/18/24 12:21 Lactated Ringer's 1000 Ml Bag IV 12/18/24 13:13 999 mls/hr .Q1H1M ONE Administration Iopamidol 80 ml 12/18/24 11:19 12/18/24 11:20 Iopamidol-370 (76%);100ml Bottle IV 12/18/24 11:20 80 ml ONCE ONE Administration Meclizine HCl 50 mg 12/18/24 10:43 12/18/24 10:54 Meclizine 25mg Tablet PO 12/18/24 10:44 50 mg ONCE ONE Administration Prednisone 40 mg 12/18/24 10:43 12/18/24 10:54 Prednisone 20mg Tab PO 12/18/24 10:44 40 mg ONCE ONE Administration Sodium Chloride 50 ml 12/18/24 11:19 12/18/24 11:20 0.9 % Sodium Chloride 50 Ml Vial IV 12/18/24 11:20 50 ml ONCE ONE Administration Sodium Chloride 10 ml 12/18/24 11:19 12/18/24 11:20 Sodium Chloride 0.9% 10ml Syr (Rad Only) IV 12/18/24 11:20 10 ml ONCE ONE Administration ORDERS Category Date Time Status CT angio head Stat Cat Scan 12/18/24 10:[address] angio neck Stat Cat Scan 12/18/24 10:[address] head/brain wo con Stat Cat Scan 12/18/24 10:43 Completed Acetone, Serum (Rapid) Stat Lab 12/18/24 10:14 Completed Complete Blood Count Auto Diff Stat Lab 12/18/24 10:14 Completed Comprehensive Metabolic Panel Stat Lab 12/18/24 10:14 Completed HIV Combo Stat Lab 12/18/24 10:14 Completed Hepatitis C Ab Qual. W/ RFX Stat Lab 12/18/24 10:14 Completed Trop I [Troponin I] Stat Lab 12/18/24 10:14 Completed VBG [Venous Blood Gas] Stat RT 12/18/24 10:56 Completed ECG Data Tracing #1: I reviewed this ECG and interpreted as documented below: Normal sinus rhythm with a ventricular rate of [address] changes concerning for ischemia. Some artifact degrades study. Normal intervals. ECG initial impression date: 12/18/24 ECG initial impression time: 10:05 Medical Decision Narrative: In summary, this patient is a 64-year-old male presenting to the Emergency Department for evaluation of vertigo. Differential diagnoses considered include but are not limited to BPPV, vestibular neuritis, intracranial hemorrhage, intracranial mass, CVA. Ruling out the most morbid conditions drove assessment. It should be noted patient's history includes hypertension, hyperlipidemia, diabetes, CAD which are not at goal therapy. This complicates all aspects of care by increasing patient's risk for morbidity. On exam, the patient is sitting upright in no acute distress. He is nontoxic- appearing. He is not experiencing symptoms at this time, as it only happens when he has significant position change. He has reassuring neurologic exam with no focal deficits. Coordination is intact. He does not have nystagmus, so not able to perform hints exam to further assess vertigo. He is hypertensive upon arrival with initial systolic greater than 200, however repeat was in the 160s. I feel this is likely a benign cause of vertigo, especially given that he has a history of it in the past, however given his risk factors patient is agreeable to obtain stroke CTs to evaluate for potential stroke, though NIH stroke scale at this time is 0. symptoms also started 2 weeks ago so he would be outside of any sort of window for any thrombolytics or thrombectomy. His glucose is also high, so will obtain labs to further assess this. Workup included CBC, CMP, troponin, VBG, acetone, CT head, CT angiogram of the head and neck were. Patient was given oral meclizine, prednisone, intranasal Flonase for symptomatic improvement of vertigo. I independently interpreted CT scan prior to the radiologist read and noted no obvious large space-occupying brain lesion and no intracranial hemorrhage. Please see their read for final interpretation. Labs were obtained that demonstrated hyperglycemia, elevated anion gap. He is not acidotic, he is not ketotic. I feel this is likely dehydration as opposed to being DKA based on no ketones, no acidosis, reassuring exam and history. He was given a bolus of IV fluids. On reassessment, patient had good improvement after administration of meclizine and interventions as above. I feel he is appropriate for discharge home with close follow-up with primary care and also gave him information for ENT if he wishes to follow-up with them for recurrent inner ear issues. He was given prescriptions for meclizine, Zyrtec, Flonase and strict return precautions. With instructions to monitor his glucose. Critical Care Critical Care Time Critical Care Time: No
[2024-12-18 10:59] LABS: Basophils # 0.1 K/mm3 (0-0.2); Basophils % 0.5 % (0.1-2.0); Eosinophils # 0.2 K/mm3 (0.0-0.4); Eosinophils % 1.8 % (0.1-12.0); Hematocrit 54.9 % (42.0-52.0); Hemoglobin 17.8 g/dL (14.1-18.0); Lymphocytes # 2.9 K/mm3 (0.7-4.5); Lymphocytes % 28.8 % (10-50); Mean Corpuscular HGB Conc 32.4 g/dL (31.8-35.4); Mean Corpuscular Hemoglobin 28.5 pg (27.0-31.2); Mean Platelet Volume 9.5 fl (7.4-10.4); Monocytes # 0.9 K/mm3 (0.1-1.0); Monocytes % 8.8 % (1.7-9.3); Neutrophils % 59.7 % (37.0-80.0); Platelet Count 348 K/mm3 (142-424); Red Blood Count 6.24 M/mm3 (4.60-6.20); Red Cell Distribution Width 13.2 % (11.5-17.5); White Blood Count 10.1 K/mm3 (4.8-10.8)
[2024-12-18 11:00] LABS: Alanine Aminotransferase 74 U/L (12-78); Albumin/Globulin Ratio 1.7 (1.1-1.8); Alkaline Phosphatase 105 U/L (38-126); Anion Gap 19.6 mEq/L (5-15); Aspartate Amino Transferase 57 U/L (17-59); Blood Urea Nitrogen 18 mg/dl (9-20); Calcium 9.5 mg/dl (8.4-10.2); Carbon Dioxide 23 mmol/L (22.0-30.0); Chloride 102 mmol/L (98-107); Creatinine Clearance Estimated 94 mL/min (50-200); Estimated Glomerular Filt Rate 97 ml/min (>60); GFR (African American) 117 ML/MIN (>60); Glucose 322 mg/dl (74-100); Potassium 4.6 mmoL/L (3.5-5.1); Sodium 140 mmol/L (136-145)
[2024-12-18 11:11] LABS: Acetone, Serum (Rapid) None Detected (None Detect)
[2024-12-18] MEDS: SODIUM CHLORIDE 0.9% 10ML SYR (RAD ONLY) 10 ML IV (11:20)
[2024-12-18] MEDS: IOPAMIDOL-370 (76%);100ML BOTTLE 80 ML IV (11:20)
[2024-12-18] MEDS: 0.9 % SODIUM CHLORIDE 50 ML VIAL IV (11:20)
[2024-12-18 11:22] LABS: VBG Base Excess -3.9 mmol/L (-2.4-2.3); VBG HCO3 20.4 mmol/L (23-30); VBG Oxygen Saturation 98.7 % (50-70); VBG PCO2 31.6 mmol/L (35-51); VBG PH 7.43 mmol/L (7.31-7.41); VBG PO2 134.1 mmol/L (28-40); VBG Total CO2 21.4 mmol/L (23-27)
[2024-12-18 11:24] LABS: Troponin I < 0.01 ng/ml (0.00-0.034)
[2024-12-18] MEDS: FLUTICASONE PROP 50MCG NASAL SPRAY 16GM 1 SPRAY NS (12:12)
[2024-12-18 12:17] LABS: Lactate Venous 2.3 mmol/L (0.4-2.0)
[2024-12-18] MEDS: LACTATED RINGERS 1000ML 1,000 ML 999 ML IV (12:21)
[2024-12-18 13:05] LABS: HIV Combo NEGATIVE (Negative)
[2024-12-18 13:12] LABS: Hepatitis C Ab Qual. W/ RFX NEGATIVE (Negative)
[2024-12-18 16:17] LABS: Reflex Lactic Add Lactic Reflex
== END 2024-12-18 13:21 | disposition home or self-care (01) ==
PROVIDERS: Emergency Provider Emergency Medicine; PCP Nurse Practitioner Family
DX: E86.0 Dehydration (principal); R73.9 Hyperglycemia, unspecified; R42 Dizziness and giddiness; R51.9 Headache, unspecified
CPT/HCPCS: 70450; 70496; 70498; 80053; 82009; 82803; 84484; 85025; 86803; 87389; 93005; 96360; 99285; J7120; Q9967

== ENCOUNTER 2025-05-21 06:31 | Emergency (ER) | payer MEDICARE, SELFPAY ==
--- NOTE | 2025-05-21 06:32 | HMH.EDGENADL ---
Discharge Plan Disposition Patient Disposition: Home, Self-Care Prescriptions Prescriptions: New ondansetron 4 mg tablet,disintegrating 4 mg PO Q6H PRN (Reason: nausea and vomiting) Qty: 10 0RF No Action Tresiba FlexTouch U-100 100 unit/mL (3 mL) insulin pen 7 unit SQ DAILY benzonatate [benzonatate] 100 mg capsule 100 mg PO TIDP PRN (Reason: Cough) Qty: 30 0RF methylprednisolone 4 mg Tablets,Dose Pack 4 mg PO DIRECTED Qty: 21 0RF amoxicillin-pot clavulanate 875-125 mg Tablet 1 tab PO Q12H Qty: 20 0RF meclizine 25 mg tablet 25 mg PO QID PRN (Reason: dizziness) Qty: 20 0RF cetirizine [Zyrtec] 10 mg tablet 10 mg PO DAILY Qty: 30 0RF atorvastatin 80 MG tablet 80 mg PO HS metformin 1,000 MG tablet 1,000 mg PO BID glimepiride 4 MG tablet 4 mg PO DAILY Patient Comments: TAKE 1 TABLET BY MOUTH ONCE DAILY dapagliflozin propanediol 10 MG tablet 10 mg PO DAILY Patient Comments: TAKE 1 TABLET BY MOUTH IN THE MORNING niacin 500 MG tablet extended release 24 hr 500 mg PO HS Patient Comments: TAKE 1 TABLET BY MOUTH AT BEDTIME irbesartan 75 MG tablet 75 mg PO DAILY aspirin 81 MG tablet,chewable 81 mg PO DAILY 30 Days Qty: 30 2RF ticagrelor 90 MG tablet 90 mg PO BID 30 Days Qty: 60 5RF Referrals Follow up/Referrals: Camilla Grant APRN [Primary Care Provider, Medical] - See instructions Activity Restrictions/Add. Instructions Additional Instructions/Restrictions: Call your family doctor to establish care for this visit to the emergency department and schedule follow-up within 1 week to ensure improvement. If you have any worsening of your condition or any other concerning signs or symptoms, return to the emergency department or your primary care doctor for further evaluation. Pablo sent to pharmacy if you develop nausea and vomiting. Clinical Impressions Clinical Impression: Back pain, Syncope and collapse Print Language Print Language: Togolese Discharge ED Provider: Paul Farris General Adult HPI <Sergey Louis MD - Last Filed: 05/21/25 06:52> General Chief complaint: Fall Stated complaint: passed out, fall, back pain Time Seen by Provider: 05/21/25 06:32 History of Present Illness HPI narrative: 65-year-old coronary artery disease on aspirin and ticagrelor, diabetes, hypertension presents for fall. He reports that over the last couple days he has had diarrhea and thinks he is getting dehydrated. He got up out of bed to go to the bathroom this morning and passed out, falling into the wall and putting a big hole in it. He reports that he is primarily concerned about pain in his back, though he did hit his head. He reports no other injuries. Patient ports that he has passed out in the past. Last time was last year. He denies any preceding symptoms today such as chest pain shortness of breath dizziness etc. Reports no symptoms afterwards either. Related Data Home Medications ?Medication ?Instructions ?Recorded ?Confirmed atorvastatin 80 mg tablet 80 mg PO HS Cholesterol 09/18/19 11/12/19 dapagliflozin propanediol 10 mg 10 mg PO DAILY Diabetes 09/18/19 11/12/19 tablet glimepiride 4 mg tablet 4 mg PO DAILY Diabetes 09/18/19 11/12/19 irbesartan 75 mg tablet 75 mg PO DAILY BLOOD PRESSURE 09/18/19 11/12/19 metformin 1,000 mg tablet 1,000 mg PO BID Diabetes 09/18/19 11/12/19 niacin 500 mg tablet,extended 500 mg PO HS Cholesterol 09/18/19 11/12/19 release 24 hr insulin degludec 100 unit/mL (3 7 unit SQ DAILY 11/12/19 11/12/19 mL) subcutaneous pen (Tresiba FlexTouch U-100 insulin) Previous Rx's ?Medication ?Instructions ?Recorded aspirin 81 mg chewable tablet 81 mg PO DAILY 30 days ##30 09/19/19 ticagrelor 90 mg tablet 90 mg PO BID 30 days #60 tabs 09/19/19 amoxicillin 875 mg-potassium 1 tab PO Q12H #20 tabs 09/17/23 clavulanate 125 mg tablet benzonatate 100 mg capsule 100 mg PO TIDP PRN Cough #30 caps 09/17/23 methylprednisolone 4 mg tablets in 4 mg PO DIRECTED #21 tabs 09/17/23 a dose pack cetirizine 10 mg tablet (Zyrtec) 10 mg PO DAILY #30 tabs 12/18/24 meclizine 25 mg tablet 25 mg PO QID PRN dizziness #20 tabs 12/18/24 ondansetron 4 mg disintegrating 4 mg PO Q6H PRN nausea and 05/21/25 tablet vomiting #10 tabs Allergies Allergy/AdvReac Type Severity Reaction Status Date / Time No Known Allergies Allergy Verified 09/17/23 13:59 PFSH <Sergey Louis MD - Last Filed: 05/21/25 06:52> PFS Disclaimer: The information contained in this section may have been updated after the patient was seen, as this information can be updated by other users. Social History Smoking Status: Never smoker second hand exposure: No alcohol intake: former substance use type: denies use current occupational status: employed Travel in the last 8 weeks?: None housing: house current occupation: [employer] caffeine: Yes ( 15 cans of [employer] a day ) Have you lived/traveled outside [place] in past 30 days?: No Contact w/someone who lives/traveled outside [place] past 30 days?: No Exposure to someone with infectious disease in past 14 days?: No Do you have a fever (greater than 100.4 F or 38 C)?: No Have you tested positive for COVID-19?: No Exposed to someone with COVID-19 in past 14 days?: No Do you have a sore throat?: No Do you have a cough?: No Do you have any weakness?: No Do you have any diarrhea?: No Are you experiencing any unusual bleeding?: No Do you have any muscle aches/pain?: Yes Do you have any abdominal pain?: No Are you experiencing loss of taste or smell?: No Other Medical History Have you received the Flu Vaccine for this season: No Have you received the Pneumonia Vaccine: No <Sergey Louis MD - Last Filed: 05/21/25 06:52> ROS Obtained: Yes All systems reviewed & no additional complaints except as documented Physical Exam <Sergey Louis MD - Last Filed: 05/21/25 06:52> General General appearance: alert and in no apparent distress Head Head exam: atraumatic and normocephalic Eye Eye exam: Present normal appearance, PERRL and EOMI ENT ENT exam: Present normal oropharynx and normal external ear exam Neck Neck exam: Present normal inspection and full ROM Chest Chest inspection: Present normal inspection and symmetric chest wall rise; Absent tenderness Respiratory Respiratory exam: Present normal lung sounds bilaterally; Absent respiratory distress Cardiovascular Cardiovascular exam: Present regular rate and normal rhythm Abdominal Exam Abdominal exam: Present soft; Absent distention, tenderness or guarding Extremities Exam Extremities exam: Present normal inspection; Absent tenderness, edema or joint swelling Back Exam Back exam: Present normal inspection and tenderness (Midline thoracic tenderness) Neurological Exam Neurological exam: Present alert and oriented X3; Absent motor sensory deficit Psychiatric Psychiatric exam: Present normal affect and normal mood Skin Skin exam: Present warm, dry and normal color Lymphatic Lymphatic Findings: no adenopathy Medical Decision Making <Sergey Louis MD - Last Filed: 05/21/25 06:52> Medical Records Medical records reviewed: Yes I reviewed the patient's medical records. Screening: Per USPSTF and CDC recommendations, given the prevalence of disease in our region, it is our hospital?s policy to screen for HIV and viral Hepatitis for all patients aged 18 and over and those with ongoing risk factors. Olaf Inquiry Pt receiving controlled substance: No Olaf was queried for this patient: No Vital Signs: 05/21/25 06:37 05/21/25 07:16 Temperature 98.3 F Temperature Source Oral Pulse Rate 89 Pulse Rate [Right Radial] 99 H Respiratory Rate 18 18 Blood Pressure 125/66 Blood Pressure [Right Arm] 143/93 H Blood Pressure Mean 94 Blood Pressure Mean [Right Arm] 109 Blood Pressure Position [Right Arm] Supine 02 Sat by Pulse Oximetry 100 98 Oxygen Delivery Method Room Air Room Air Lab Data Lab results reviewed: Yes I reviewed the patient's lab results. Lab Results 05/21/25 06:40: WBC 12.1 H, RBC 5.39, Hgb 16.1, Hct 48.6, MCV 90.2, MCH 29.9, MCHC 33.1, RDW 14.0, Plt Count 382, MPV 9.3, Neut % (Auto) 54.8, Lymph % (Auto) 31.6, [place] % (Auto) 10.0 H, Eos % (Auto) 2.4, Baso % (Auto) 0.6, Neut # (Auto) 6.7, Lymph # (Auto) 3.8, [place] # (Auto) 1.2 H, Eos # (Auto) 0.3, Baso # (Auto) 0.1, Sodium 138, Potassium 4.3, Chloride 99, Carbon Dioxide 29, Anion Gap 14.3, BUN 25 H, Creatinine 1.10, Estimated Creat Clear 85, Estimated GFR 67, Est GFR ( Amer) 81, Glucose 214 H, Calcium 9.0, Magnesium 1.4 L, Total Bilirubin 0.8, AST 27, ALT 25, Alkaline Phosphatase 78, Troponin I < 0.01, Total Protein 7.6, Albumin 4.5, Globulin 3.1, Albumin/Globulin Ratio 1.5 05/21/25 06:40 05/21/25 06:40 Orders (Tests/Meds): ED MEDICATIONS Generic Name Dose Route Start Last Admin Trade Name Freq PRN Reason Stop Dose Admin Magnesium Sulfate 2 gm in 50 mls @ 50 mls/hr 05/21/25 08:00 Magnesium Sulfate 2gm/50ml Premix IV 05/21/25 08:59 ONCE ONE Discontinued Medications Generic Name Dose Route Start Last Admin Trade Name Freq PRN Reason Stop Dose Admin Acetaminophen 1,000 mg 05/21/25 06:40 05/21/25 06:45 Acetaminophen 500mg Tab PO 05/21/25 06:41 1,000 mg ONCE ONE Administration Lactated Ringer's 1,000 mls @ 999 mls/hr 05/21/25 06:45 05/21/25 06:45 Lactated Ringer's 1000 Ml Bag IV 05/21/25 07:45 999 mls/hr .Q1H1M RICKY Administration Ketorolac Tromethamine 30 mg 05/21/25 06:40 05/21/25 06:45 Ketorolac 30mg/Ml Vial IV 05/21/25 06:41 30 mg ONCE ONE Administration Magnesium Oxide 800 mg 05/21/25 08:00 Magnesium Oxide 400mg Tablet PO 05/21/25 08:01 ONCE ONE ORDERS Category Date Time Status CT cervical spine wo con Stat Cat Scan 05/21/25 06:[address] head/brain wo con Stat Cat Scan 05/21/25 06:[address] thoracic spine wo con Stat Cat Scan 05/21/25 06:40 Completed CXR --portable [XR chest portable] Stat Exams 05/21/25 06:42 Completed CBC w/Auto Diff [Complete Blood Count Auto Diff] Stat Lab 05/21/25 06:40 Completed CMP [Comprehensive Metabolic Panel] Stat Lab 05/21/25 06:40 Completed Magnesium Stat Lab 05/21/25 06:40 Completed Troponin I Q3H Lab 05/21/25 06:40 Completed Troponin I Q3H Lab 05/21/25 09:45 Ordered ECG Data Tracing #1: I reviewed this ECG and interpreted as documented below: ECG initial impression date: 05/21/25 ECG initial impression time: 06:37 ECG normal with no acute: arrhythmias, ischemia, conduction abnormalities, chamber hypertrophy HEART Score History (anamnesis): Slightly suspicious ECG: Normal Age: >65 years Risk factors: Atherosclerosis history Troponin: </= normal limit HEART Score: 4 Medical Decision Narrative: 65-year-old male with history of coronary artery disease, diabetes, hypertension, presents after passing out this morning and falling into a wall after waking up to go to the bathroom. History was obtained via interactive discussion with patient chart review. On arrival, patient is [afebrile, hemodynamically stable, satting appropriately, alert, oriented x4, GCS 15], moving all extremities spontaneously. Full physical exam performed and significant for midline thoracic spinal tenderness Differential includes but is not limited to intracranial trauma intrathoracic trauma intra-abdominal trauma spine trauma extremity trauma, dehydration, vasovagal syncope, cardiogenic syncope, orthostasis. Patient was given 1 L of LR, Tylenol, Toradol for symptomatic management and correction of underlying abnormalities. Workup initiated including CT head and CT C-spine and T-spine. Chest x-ray. Basic labs. At this time care handed off to oncoming physician pending workup. <Paul Farris MD - Last Filed: 05/21/25 08:15> Vital Signs: 05/21/25 06:37 05/21/25 07:16 Temperature 98.3 F Temperature Source Oral Pulse Rate 89 Pulse Rate [Right Radial] 99 H Respiratory Rate 18 18 Blood Pressure 125/66 Blood Pressure [Right Arm] 143/93 H Blood Pressure Mean 94 Blood Pressure Mean [Right Arm] 109 Blood Pressure Position [Right Arm] Supine 02 Sat by Pulse Oximetry 100 98 Oxygen Delivery Method Room Air Room Air Lab Data Lab Results 05/21/25 06:40: WBC 12.1 H, RBC 5.39, Hgb 16.1, Hct 48.6, MCV 90.2, MCH 29.9, MCHC 33.1, RDW 14.0, Plt Count 382, MPV 9.3, Neut % (Auto) 54.8, Lymph % (Auto) 31.6, [place] % (Auto) 10.0 H, Eos % (Auto) 2.4, Baso % (Auto) 0.6, Neut # (Auto) 6.7, Lymph # (Auto) 3.8, [place] # (Auto) 1.2 H, Eos # (Auto) 0.3, Baso # (Auto) 0.1, Sodium 138, Potassium 4.3, Chloride 99, Carbon Dioxide 29, Anion Gap 14.3, BUN 25 H, Creatinine 1.10, Estimated Creat Clear 85, Estimated GFR 67, Est GFR ( Amer) 81, Glucose 214 H, Calcium 9.0, Magnesium 1.4 L, Total Bilirubin 0.8, AST 27, ALT 25, Alkaline Phosphatase 78, Troponin I < 0.01, Total Protein 7.6, Albumin 4.5, Globulin 3.1, Albumin/Globulin Ratio 1.5 Orders (Tests/Meds): ED MEDICATIONS Generic Name Dose Route Start Last Admin Trade Name Freq PRN Reason Stop Dose Admin Magnesium Sulfate 2 gm in 50 mls @ 50 mls/hr 05/21/25 08:00 Magnesium Sulfate 2gm/50ml Premix IV 05/21/25 08:59 ONCE ONE Discontinued Medications Generic Name Dose Route Start Last Admin Trade Name Freq PRN Reason Stop Dose Admin Acetaminophen 1,000 mg 05/21/25 06:40 05/21/25 06:45 Acetaminophen 500mg Tab PO 05/21/25 06:41 1,000 mg ONCE ONE Administration Lactated Ringer's 1,000 mls @ 999 mls/hr 05/21/25 06:45 05/21/25 06:45 Lactated Ringer's 1000 Ml Bag IV 05/21/25 07:45 999 mls/hr .Q1H1M RICKY Administration Ketorolac Tromethamine 30 mg 05/21/25 06:40 05/21/25 06:45 Ketorolac 30mg/Ml Vial IV 05/21/25 06:41 30 mg ONCE ONE Administration Magnesium Oxide 800 mg 05/21/25 08:00 Magnesium Oxide 400mg Tablet PO 05/21/25 08:01 ONCE ONE ORDERS Category Date Time Status CT cervical spine wo con Stat Cat Scan 05/21/25 06:[address] head/brain wo con Stat Cat Scan 05/21/25 06:[address] thoracic spine wo con Stat Cat Scan 05/21/25 06:40 Completed CXR --portable [XR chest portable] Stat Exams 05/21/25 06:42 Completed CBC w/Auto Diff [Complete Blood Count Auto Diff] Stat Lab 05/21/25 06:40 Completed CMP [Comprehensive Metabolic Panel] Stat Lab 05/21/25 06:40 Completed Magnesium Stat Lab 05/21/25 06:40 Completed Troponin I Q3H Lab 05/21/25 06:40 Completed Troponin I Q3H Lab 05/21/25 09:45 Ordered HEART Score HEART Score: 4 Medical Decision Narrative: 65-year-old male with history of coronary artery disease, diabetes, hypertension, presents after passing out this morning and falling into a wall after waking up to go to the bathroom. History was obtained via interactive discussion with patient chart review. On arrival, patient is afebrile, hemodynamically stable, satting appropriately, alert, oriented x4, GCS 15, moving all extremities spontaneously. Full physical exam performed and significant for midline thoracic spinal tenderness Differential includes but is not limited to intracranial trauma intrathoracic trauma intra-abdominal trauma spine trauma extremity trauma, dehydration, vasovagal syncope, cardiogenic syncope, orthostasis. Patient was given 1 L of LR, Tylenol, Toradol for symptomatic management and correction of underlying abnormalities. Workup initiated including CT head and CT C-spine and T-spine. Chest x-ray. Basic labs. At this time care handed off to oncoming physician pending workup. Brenton: I assumed primary responsibility for this patient after signout from previous physician. On my evaluation, patient very clinically well. Normotensive and nontachycardic, no acute complaints. States that he has had diarrhea for the last 2 days, numerous sick contacts with vomiting and diarrheal illnesses around the house. No blood in the stool. No vomiting. Workup independently interpreted, overall unremarkable CBC or chemistry, but patient's BUN mildly elevated and creatinine near upper limit of normal consistent with mild dehydration in the setting of magnesium being low at 1.4 likely due to diarrheal losses. This was repleted IV and p.o. Other labs unremarkable. I independently interpreted patient's imaging, no evidence of intracranial hemorrhage, cervical or thoracic spine injury. Magnesium repleted. Zofran sent to pharmacy in case patient does develop vomiting. Because patient at baseline without signs or symptoms of clinical decompensation, deemed appropriate for discharge. Results were relayed to patient who voiced understanding and were agreeable to outpatient management and follow up. I discussed my clinical impression with patient and answered all questions. At this time, the evidence for any other entities in the differential is insufficient to warrant any further testing or ED observation. This was explained as well. Advisory was given that persistent or worsening symptoms require further evaluation. I confirmed the understanding of this discussion. Procedures <Sergey Louis MD - Last Filed: 05/21/25 06:52> Risk/Benefits of Procedure(s) Were Explained: Yes Critical Care <Sergey Louis MD - Last Filed: 05/21/25 06:52> Critical Care Time Critical Care Time: No
[2025-05-21 06:37] VITALS: BP 143/93; PULSE 99; RESP 18; TEMP 36.8; O2SAT 100; BMI 32.3
--- NOTE | 2025-05-21 06:37 | ECG_ITS ---
APPROVED REPORT Exam: Resting ECG HR:90 bpm ECG Measurements Heart Rate 90 AXES NE 156 P 57 QRSd 83 QRS 31 QT 347 T 46 QTc 395 Conclusion Sinus rhythm Electronically signed by : HARRIETT CRAIG, 05/21/2025 13:24:34
--- NOTE | 2025-05-21 06:40 | CT_ITS ---
FINAL REPORT CLINICAL HISTORY: fall, thoracic back pain FINDINGS: CT THORACIC SPINE TECHNIQUE: Thin section axial CT with sagittal and coronal reconstructions This study was performed with techniques to keep radiation doses as low as reasonably achievable, (ALARA). Individualized dose reduction techniques using automated exposure control or adjustment of mA and/or kV according to the patient''s size were employed. FINDINGS: No fracture is present. Alignment is normal. There are mild degenerative changes. No bony canal stenosis is seen. No significant disc abnormalities. IMPRESSION: Negative CT evaluation of the thoracic spine for acute bony injury. Reviewed, Interpreted and Dictated by Deepak Galloway MD Transcribed by Ramonita Lomeli Authenticated and [facility]
--- NOTE | 2025-05-21 06:40 | CT_ITS ---
FINAL REPORT TECHNIQUE: Thin section axial CT with sagittal reconstruction without contrast This study was performed with techniques to keep radiation doses as low as reasonably achievable, (ALARA). Individualized dose reduction techniques using automated exposure control or adjustment of mA and/or kV according to the patient''s size were employed. CLINICAL HISTORY: fall FINDINGS: No fracture is seen. Alignment is normal. No obvious bony spinal canal stenosis is present. There is mild diffuse degenerative disc disease. IMPRESSION: No fracture or malalignment Reviewed, Interpreted and Dictated by Deepak Galloway MD Transcribed by Ashley Toure Authenticated and [facility]
--- NOTE | 2025-05-21 06:40 | CT_ITS ---
FINAL REPORT TECHNIQUE: Noncontrast exam This study was performed with techniques to keep radiation doses as low as reasonably achievable, (ALARA). Individualized dose reduction techniques using automated exposure control or adjustment of mA and/or kV according to the patient''s size were employed. CLINICAL HISTORY: fall on blood thinners COMPARISON: 12/18/2024 FINDINGS: No abnormal density is seen. Ventricles are normal. There is no hemorrhage. No mass effect is seen. Bone windows show no evidence of fracture. IMPRESSION: No acute findings Reviewed, Interpreted and Dictated by Deepak Galloway MD Transcribed by Ashley Toure Authenticated and . [facility]
--- NOTE | 2025-05-21 06:42 | XR_ITS ---
FINAL REPORT CLINICAL HISTORY: fall FINDINGS: No acute pulmonary opacity is present. There is no evidence of effusion or pneumothorax. Mediastinum is unremarkable. Heart size is normal. IMPRESSION: No acute abnormality. Reviewed, Interpreted and Dictated by Deepak Galloway MD Transcribed by Ashley Toure Authenticated and [facility]
[2025-05-21] MEDS: KETOROLAC 30MG/ML VIAL 30 MG IV (06:45)
[2025-05-21] MEDS: LACTATED RINGERS 1000ML 1,000 ML 999 ML IV (06:45)
[2025-05-21] MEDS: ACETAMINOPHEN 500MG TAB 1000 MG PO (06:45)
[2025-05-21 06:50] LABS: Basophils # 0.1 K/mm3 (0-0.2); Basophils % 0.6 % (0.1-2.0); Eosinophils # 0.3 Kmm3 (0.0-0.4); Eosinophils % 2.4 % (0.1-12.0); Hematocrit 48.6 % (42.0-52.0); Hemoglobin 16.1 g/dL (14.1-18.0); Immature Granulocytes # 0.07 10^3uL; Immature Granulocytes % 0.6 %; Lymphocytes # 3.8 K/mm3 (0.7-4.5); Lymphocytes % 31.6 % (10-50); Mean Corpuscular HGB Conc 33.1 g/dL (31.8-35.4); Mean Corpuscular Hemoglobin 29.9 pg (27.0-31.2); Mean Corpuscular Volume 90.2 fl (80-94); Mean Platelet Volume 9.3 fl (7.4-10.4); Monocytes # 1.2 K/mm3 (0.1-1.0); Neutrophils # 6.7 K/mm3 (1.8-7.8); Neutrophils % 54.8 % (37.0-80.0); Nucleated Red Blood Cells # 0 10^3/uL; Nucleated Red Blood Cells % 0 %; Platelet Count 382 K/mm3 (142-424); Red Blood Count 5.39 M/mm3 (4.60-6.20); Red Cell Distribution Width-SD 46.1 fL; White Blood Count 12.1 K/mm3 (4.8-10.8)
[2025-05-21 06:54] LABS: Albumin Level 4.5 g/dl (3.5-5.0); Chloride 99 mmol/L (98-107); Potassium 4.3 mmoL/L (3.5-5.1); Sodium 138 mmol/L (136-145)
[2025-05-21 06:57] LABS: Alanine Aminotransferase 25 U/L (12-78); Albumin/Globulin Ratio 1.5 (1.1-1.8); Alkaline Phosphatase 78 U/L (38-126); Anion Gap 14.3 mEq/L (5-15); Aspartate Amino Transferase 27 U/L (17-59); Bilirubin,Total 0.8 mg/dl (0.2-1.3); Blood Urea Nitrogen 25 mg/dl (9-20); Carbon Dioxide 29 mmol/L (22.0-30.0); Creatinine Clearance Estimated 85 mL/min (50-200); Estimated Glomerular Filt Rate 67 ml/min (>60); GFR (African American) 81 ML/MIN (>60); Globulin 3.1 g/dL (1.3-3.2); Total Protein,Serum 7.6 g/dl (6.3-8.2)
[2025-05-21 06:58] LABS: Glucose 214 mg/dl (74-100); Magnesium 1.4 mg/dl (1.6-2.3)
--- OUTSIDE RECORDS SUMMARY | 2025-05-21 07:11 | XMS_ITS | Clinical Summary ---
Author Organization Healthcare Address [address] [place] [address] Care Team Providers Care Wellhead Pumper Name Role Phone Camilla De La Torre HARI Primary Care Provider Allergies No known active allergies Medications atorvastatin (Lipitor) 80 MG tablet Take 80 mg by mouth 1 (one) time each day in the morning. 2 Active glimepiride (Amaryl) 4 MG tablet Take 1 tablet (4 mg) by mouth 1 (one) time each day. 2 Active Tresiba FlexTouch 100 UNIT/ML injection pen Inject 50 Units under the skin 1 (one) time each day in the morning. 2 Active irbesartan (Avapro) 75 MG tablet Take 1 tablet (75 mg) by mouth 1 (one) time each day. 2 Active metFORMIN (Glucophage) 1000 MG tablet Take 1 tablet (1,000 mg) by mouth 2 (two) times a day. 2 Active niacin (Niaspan) 500 MG ER tablet Take 1 tablet (500 mg) by mouth 1 (one) time each day. 2 Active sildenafil (Viagra) 50 MG tablet Take 1 tablet (50 mg) by mouth if needed. 2 Active aspirin 81 MG EC tablet Take 1 tablet (81 mg) by mouth 1 (one) time each day. Active Multiple Vitamins-Minera ls (CENTRUM SILVER 50+MEN PO) Take 1 tablet by mouth 1 (one) time each day. Active cetirizine (ZyrTEC) 10 MG tablet Take 1 tablet (10 mg total) by mouth 1 (one) time each day. 30 tablet 11 2 Active Additional Information Patient not taking.Reported on 01/06/2023 clotrimazole (Lotrimin) 1 % external solutionIndicat ions:Balanitis Apply 1 application topically 2 (two) times a day. 60 mL 3 Active Additional Information Patient not taking.Reported on 06/27/2024 Active Problems Problem Noted Date Diagnosed Date Balanitis 01/06/2023 Assessment & Plan (01/06/2023 12:12 PM EST): - presentation with red patches of head and foreskin of penis most consistent with balanitis - educated on proper genital hygiene, advised to wash with warm water and soap, avoid chemicals, pat dry - ordering clotrimazole soln to be applied twice per day to head of penis and foreskin after washing and drying has been completed - will repeat STI check including urine G and C; will defer repeating RPR as unlikely syphilis re-infection and titer should be monitored no sooner than 3 months after treatment which would be around 02/17/23 - follow up if symptoms worsen or new concerns arise Urinary frequency 01/06/2023 Assessment & Plan (01/06/2023 12:05 PM EST): - pt endorses new urinary frequency. Estimates urinating every 2 hours for the past 2 weeks - will obtain a UA to assess for UTI and collecting urine gonorrhea and chlamydia testing as well Penile rash 01/06/2023 Assessment & Plan (06/27/2024 3:00 PM EDT): - advised pt that I recommend dermatology referral for further evaluation of penile rash. Pt declines at this time. Pt will follow up with PCP. 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 Will obtain this today. Discussed that if 4 fold decreased not achieved would recommend re- treatment with bicillin or doxycyline. Pt stated understanding and agrees with the plan - ordered RPR and will trend. 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 - s/p IM Bicillin 2.4 m units weekly x 3 weeks - pt reports followed up with ophthalmology and reports normal eye exam - I encouraged pt to attend his appt with neurology - will plan to check RPR titer in 6 weeks for response to treatment Elevated blood pressure reading 11/16/2022 Assessment & Plan (11/16/2022 4:17 PM EST): BP 144/83 in clinic today Patient denies episodes of chest pain or dyspnea - discussed need to follow up with primary care for subsequent BP check Papilledema 10/13/2022 Resolved Problems Problem Noted Date Diagnosed Date Resolved Date Late latent syphilis 11/11/2022 023 Assessment & Plan (01/06/2023 12:15 PM EST): - patient previously admitted with 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 No headache, hearing issues, or gait issues per pt. - ordering IM Bicillin x 1 weekly for 3 weeks - ordering HIV-1/2 Ab/Ag screen, Hepatitis serologies, as well as urine gonorrhea and chlamydia screen - neurology follow up scheduled - referral for ophthalmology follow up placed - offered to continue care at [facility]; patient prefers primary care to follow up with titers Family History Medical History Relation Name Comments Heart Problem Father Cancer Mother Relation Name Status Comments Father Mother Social History Tobacco Use Types Packs/Day Years Used Date Smoking Tobacco: Never Passive Smoke Exposure: Never Smokeless Tobacco: Never Tobacco Cessation:Counseling Given: Not Answered Alcohol Use Standard Drinks/Week Comments Never 0 (1 standard drink = 0.6 oz pur e alcohol) PHQ-2 Answer Date Recorded Patient Health Questionnaire-2 Score 0 06/27/2024 CAGE ASSESSMENT Answer Date Recorded Cage unable to access Not on file 10/14/2022 Cage max number of drinks Not on file 2021 Cage Beverages a week Not on file 10/14/2022 Have you ever felt you should CUT down on your d rinking? 0 10/14/2022 Have you been ANNOYED by people criticizing your drinking? 0 10/14/2022 Have you felt GUILTY about your drinking? 0 10/14/2022 Have you had a drink first t tamera in the morning (EYE-DUTY ENGINEER) to steady your nerves or to get rid of a hangover? 0 10/14/2022 CAGE Questionnaire Score 0 022 PHQ-2A Answer Date Recorded Patient Health Questionnaire-2 Score 1 01/06/2023 Sex and Gender Information Value Date Recorded Sex Assigned at Not on file Legal Sex Male 6:16 PM EDT Gender Identity Not on file Sexual Orientation Not on file Last Filed Vital Signs Vital Sign Reading Time Taken Comments Blood Pressure 134/82 06/27/2024 2:23 PM EDT Pulse 74 06/27/2024 2:23 PM EDT Temperature 36.7 C (98.1 F) 06/27/2024 2:23 PM EDT Respiratory Rate 12 01/06/2023 11:0 8 AM EST Oxygen Saturation 97% 06/27/2024 2:23 PM EDT RA Inhaled Oxygen Concentration - - Weight 90.6 kg (199 lb 11.8 oz) 06/27/2024 2:23 PM EDT Height 167.6 cm (5' 6 ) 06/27/2024 2:23 PM EDT Body Mass Index 32.24 06/27/2024 2:23 PM EDT Plan of Treatment Upcoming Encounters Date Type Department Care Team (Late st Contact Info) Description 06/27/2025 3:00 PM EDT Office Visit [facility] [address] [place] [id number] Yvan Sheehan PA [address] [facility] [address] [place], [place] Health Maintenance Due Date Last Done Comments [facility]-Medicare Annual Wellness (AWV) 1960 [facility]-Infant/Child/Adol SDOH Screenings 1959 [facility]- SDOH Screenings 1977 [facility]-Adult SDOH Screenings 1977 [facility]-DTaP,Tdap,and Td Vaccines (1 - Tdap) 1978 CT Colonography 2004 Colonoscopy 2004 FIT-DNA 2004 FIT 2004 FOBT 2004 Sigmoidoscopy 2004 [facility]-Colorectal Cancer Screening 2004 [facility]-Pneumococcal Vaccine: 50+ Years (1 of 1 - PCV) 2009 [facility]-Zoster Vaccines (1 of 2) 2009 [id number] Vaccine ( - season) 2024 [facility]-Depression Screening 06/27/2025 06/27/2024 [facility]-Influenza Vaccine (Season Ended) 2025 [facility]-RSV Vaccine: 60+ Years or (1 - 1-dose 75+ series) 2034 [facility]-Hepatitis C Screening Completed 11/11/2022 [facility]-Obesity Intervention Completed 024, 01/06/2023, 11/14/2022, Additional history exists HPV Vaccines Aged Out No longer eligi ble based on patient's age to complete this topic [facility]-HIB Vaccines Aged Out No longer e ligible based on patient's age to complete this topic [facility]-Hepatitis A Vaccines Aged Out No longer eligible based on patient's age to complete this topic [facility]-IPV Vaccines Aged Out No longer e ligible based on patient's age to complete this topic [facility]-Rotavirus Vaccines Aged Out No lo nger eligible based on patient's age to complete this topic Procedures Procedure Name Priority Date/Time Associated Diagnosis Comments HEPATITIS C ANTIBODY W/REFLEX TO HCV QUANT PCR Routine 11/11/2022 3:10 PM EST Late latent syphilis from Last 3 Months or Most Recently Relevant to Health Maintenance Results * Hepatitis C Antibody (11/11/2022 3:10 PM EST) Hepatitis C Antibody Negative Negative 11/11/2022 7:51 PM EST [facility] Blood Venous blood specimen / Unknown Venipuncture / Unknown 11/11/2022 3:10 PM EST 11/11/2022 3:10 PM EST us Yvan [facility] BLOOD ORDERABLES Final Res ult [facility] [address] [place] [address] from Last 3 Months or Most Recently Relevant to Health Maintenance Insurance MEDICARE Advance Directives * Full Code (Latest Code Status on File) Date Activated Date Inactivated Comments 10/14/2022 1:27 AM 10/16/2022 4:31 PM Question Answer Comments Patient has decision-making capacity? Yes Care Teams Wellhead Pumper Relationship Specialty Start Date End Date Camilla De La Torre APRN [address] [facility] [address] [place] [address] PCP - General 10/14/22
--- OUTSIDE RECORDS SUMMARY | 2025-05-21 07:11 | XMS_ITS | Encounter Summary ---
Author Organization Healthcare Address [address] [place] [address] Care Team Providers Care Scrap Sawyer Name Role Phone Sangita Fabian PRODUCT TESTER [employer] Primary Care Provider [phone] Camilla De La Torre PRODUCT TESTER [employer] Primary Care Provider [phone] Encounter Details Date Type Department Care Team (Late st Contact Info) Description 10/13/2022 Ophth Exam [facility] [address] [place] [address] Delroy Dexter MD [address] [place] [address] Social History Tobacco Use Types Packs/Day Years Used Date Smoking Tobacco: Never Assessed CAGE ASSESSMENT Answer Date Recorded Cage unable [...] drink first t tamera in the morning (EYE-MECHANICAL DESIGN ENGINEER FACILITIES) to steady your nerves or to get rid of a hangover? 0 10/14/2022 CAGE Questionnaire Score 0 022 Sex and Gender Information Value Date Recorded Sex Assigned at Not on file Legal Sex Male 6:16 PM EDT Gender Identity Not on file Sexual Orientation Not on file COVID-19 Exposure Response Date Recorded In the last 10 days, have yo u been in contact with someone who was confirmed or suspected to have Coronavirus/COVID-19? No / Unsure 10/13/2022 6:27 PM EST documented as of this encounter Functional Status * Calculated C-SSRS Risk Score (Lifetime/Recent) Answer Date of Assessment Author No Risk Indicated 10/16/2022 8:12 AM Nissa Scott, COBY * Question Answer Date of Assessment Author 1. Wish to be (Past 1 Month) No 022 8:12 AM Nissa Scott, COBY 2. Non-Specific Active Suici starla Thoughts (Past 1 Month) No 10/16/2022 8:12 AM Nissa Scott, COBY 6. Suicidal Behavior (Lifetime) No 8:12 AM Nissa Scott, RN documented as of this encounter Plan of Treatment Upcoming Encounters Date Type Department Care Team (Late st Contact Info) Description 06/27/2025 3:00 PM EDT Office Visit [address] [phone] Yvan Sheehan PA [address] [place] [phone] documented as of this encounter Visit Diagnoses Not on filedocumented in this encounter Additional Health Concerns Infection Onset Date Last Indicated Resolved Time Meningitis Rule-Out 10/14/2022 10/14/2022 10/14/20 22 5:55 PM EST documented as of this encounter Care Teams Scrap Sawyer Relationship Specialty Start Date End Date Sangita Fabian APRN [facility] [address] [id number] PCP - General 04/09/21 10/13/22 Camilla De La Torre APRN [address] [facility] [address] [place] [address] PCP - General 10/14/22 documented as of this encounter
[2025-05-21 07:16] VITALS: BP 125/66; PULSE 89; RESP 18; O2SAT 98
[2025-05-21 07:30] VITALS: BP 126/69; PULSE 85; RESP 18; O2SAT 98
[2025-05-21 07:31] LABS: Troponin I < 0.01 ng/ml (0.00-0.034)
[2025-05-21 08:00] VITALS: BP 125/69; PULSE 85; RESP 18; O2SAT 97
[2025-05-21] MEDS: MAGNESIUM SULFATE IN WATER 2 GM/50 ML PIGGYBACK IV (08:21)
[2025-05-21] MEDS: MAGNESIUM OXIDE 400MG TABLET 800 MG PO (08:22)
[2025-05-21 08:30] VITALS: BP 121/69; PULSE 82; RESP 18; O2SAT 96
[2025-05-21 08:40] VITALS: BP 121/69; PULSE 81; RESP 13; TEMP 36.6; O2SAT 98
== END 2025-05-21 08:41 | disposition home or self-care (01) ==
PROVIDERS: Emergency Medicine; Emergency Provider Emergency Medicine; PCP Nurse Practitioner Family
DX: R55 Syncope and collapse (principal); M54.6 Pain in thoracic spine; E83.42 Hypomagnesemia; R19.7 Diarrhea, unspecified
CPT/HCPCS: 70450; 71045; 72125; 72128; 80053; 83735; 84484; 85025; 93005; 96361; 96365; 96375; 99285; J1885; J3475; J7120